=== PATIENT | female | born 1965 | race Two or more races ===

== ENCOUNTER 2016-08-20 10:01 | Emergency (ER) | payer MEDICAID ==
[~2016-08-20] VITALS: Ht 160 cm; Wt 97.5 kg
[2016-08-20 10:50] VITALS: BP 146/81
== END 2016-08-20 11:17 | disposition home or self-care (01) ==
LOC: ER 10:01
DX: I10 Essential (primary) hypertension (principal); Z76.0 Encounter for issue of repeat prescription

== ENCOUNTER 2016-10-17 11:22 | Emergency (ER) | payer MEDICAID ==
[~2016-10-17] VITALS: Ht 160 cm; Wt 97.5 kg
[2016-10-17 11:53] VITALS: BP 144/71
== END 2016-10-17 12:25 | disposition home or self-care (01) ==
LOC: ER 11:22
DX: I10 Essential (primary) hypertension (principal); Z76.0 Encounter for issue of repeat prescription

== ENCOUNTER 2021-06-12 09:40 | Inpatient (IN) | payer MEDICAID ==
[~2021-06-12] VITALS: Ht 157.5 cm; Wt 116.8 kg
[2021-06-12 12:22] LABS: Basophils # (auto) 0 10 ^3/uL (0-0.2); Basophils % (auto) 0.6 % (0.0-2.0); Eosinophils # (auto) 0 10 ^3/uL (0-0.8); Eosinophils % (auto) 0.1 % (0.0-7.0); Hematocrit 40.1 % (36.0-46.0); Hemoglobin 13.5 g/dL (12.2-16.2); Lymphocytes # (auto) 1.7 10 ^3/uL (0.4-5.4); Lymphocytes % (auto) 31.6 % (10.0-50.0); Mean Corpuscular Hemoglobin 29.2 pg (28.0-32.0); Mean Corpuscular Hgb Conc. 33.6 g/dL (32.0-36.0); Mean Corpuscular Volume 87.1 fL (80.0-100.0); Monocytes # (auto) 0.3 10 ^3/uL (0-1.3); Monocytes % (auto) 6.3 % (0.0-12.0); Neutrophils # (auto) 3.3 10 ^3/uL (1.6-8.6); Neutrophils % (auto) 61.4 % (37.0-80.0); Nucleated Red Blood Cells % 0.1 %; Red Cell Distribution Width 14.4 % (11.8-14.3); White Blood Cell 5.4 10^3/uL (4.4-10.8)
[2021-06-12 12:37] LABS: Calcium 8.3 mg/dL (8.5-10.1); Potassium 3.3 mmol/L (3.5-5.1)
[2021-06-12 12:44] LABS: BUN/Creatinine Ratio 13.2; Bilirubin, Total 0.3 mg/dL (0.2-1.0); Total Protein 7.9 g/dL (6.4-8.2)
[2021-06-12] MEDS ORDERED: ASCORBIC ACID 500 MG TAB PO ONE (15:15)
[2021-06-12] MEDS ORDERED: DexAMETHasone SOD PHOS 4 MG/1ML SDV INJ IV ONE (15:15)
[2021-06-12] MEDS ORDERED: cefTRIAXone 1GM/50ML D5W 50 ML IV ONE (15:15)
[2021-06-12] MEDS ORDERED: AZITHROMYCIN 500MG/ 250ML 250 ML IV ONE (15:15)
[2021-06-12] MEDS ORDERED: hydrOXYchloroQUINE SULFATE 200 MG TAB PO ONE (15:15)
[2021-06-12] MEDS ORDERED: ZINC SULFATE 220mg CAP or TAB PO ONE (15:15)
[2021-06-12] MEDS ORDERED: CHOLECALCIFEROL (VITD3) 2,000 UNIT CAP/TAB PO ONE (15:15)
[2021-06-12] MEDS ORDERED: NITROGLYCERIN 0.4 MG SL TAB SL PRN ×2 (15:30→16:30)
[2021-06-12] MEDS ORDERED: POTASSIUM CHL 20MEQ/100ML 100 ML IV ONE (15:30)
[2021-06-12] MEDS ORDERED: MORPHINE SULFATE INJECTION 2 MG/ML SYRG IV PRN ×3 (15:30→16:30)
[2021-06-12] MEDS ORDERED: LORazepam 0.5 MG TAB PO PRN (16:30)
[2021-06-12] MEDS ORDERED: HYDROcodone-ACET 5/325MG TAB PO PRN (16:30)
[2021-06-12] MEDS ORDERED: ALUM & MAG HYDROX-SIMETH LIQ(MAALOX) 30 ML PO PRN (16:30)
[2021-06-12] MEDS ORDERED: DOCUSATE SOD 100 MG CAP PO PRN (16:30)
[2021-06-12] MEDS ORDERED: hydrALAZINE HCL 20 MG/ML VL IV PRN (16:30)
[2021-06-12] MEDS ORDERED: ALBUMIN 25% 100 ML IV ONE (16:30)
[2021-06-12] MEDS ORDERED: ONDANSETRON HCL 4 MG/2 ML VIAL IV PRN (16:30)
[2021-06-12] MEDS ORDERED: REMDESIVIR PER PHARMACY 0 ML IV SCH (16:30)
[2021-06-12] MEDS ORDERED: FAMOTIDINE (10MG/ML) 2ML VL IV ONE (16:30)
[2021-06-12 17:00] LABS: Albumin 3.1 g/dL (3.4-5.0); Calcium 8.3 mg/dL (8.5-10.1); Magnesium 2.7 mg/dL (1.6-2.6); Potassium 3.6 mmol/L (3.5-5.1)
[2021-06-12] MEDS ORDERED: REMDESIVIR 200 MG in NS 210ml LOADING DOSE ADULT IV ONE (17:00)
[2021-06-12 17:11] LABS: Bilirubin, Total 0.3 mg/dL (0.2-1.0); CRP High Sensitivity 4.73 mg/dL (< 0.3); Total Protein 7.4 g/dL (6.4-8.2)
[2021-06-12 17:12] LABS: Cholesterol 94 mg/dL (< 200)
[2021-06-12 17:14] LABS: HDL Cholesterol 34 mg/dL (40-59); LDL Cholesterol 46 mg/dL (< 100); Triglycerides 119 mg/dL (< 150)
[2021-06-12 17:50] LABS: Thyroid Stimulating Hormone 0.79 uIU/mL (0.358-3.74)
[2021-06-12] MEDS: BUDESONIDE (INHALATION) 180 MCG IH IN SCH (21:53)
[2021-06-12] MEDS: ALBUTEROL SULF HFA 90MCG INH 200DOSE IN PRN (21:54)
[2021-06-13] MEDS: POTASSIUM CHL 20 Meq TABLET PO SCH ×3 (01:07→21:29)
[2021-06-13] MEDS: FUROSEMIDE 20 MG/2 ML VIAL IV SCH ×3 (01:09→18:04)
[2021-06-13] MEDS: DOXYCYCLINE 100MG/250ML 250 ML IV SCH ×4 (01:10→21:29)
[2021-06-13] MEDS: ATORVASTATIN 20 MG TAB PO SCH ×2 (01:10→21:30)
[2021-06-13] MEDS: ENOXAPARIN SOD 40 MG/0.4 ML SYRINGE SC SCH ×3 (01:11→21:30)
[2021-06-13] MEDS: FAMOTIDINE (10MG/ML) 2ML VL IV SCH ×3 (01:27→21:29)
[2021-06-13 04:17] VITALS: BP 110/66
[2021-06-13] MEDS ORDERED: LISI2.5T47 PO (04:55)
[2021-06-13 05:18] VITALS: BP 116/68
[2021-06-13] MEDS: BUDESONIDE (INHALATION) 180 MCG IH IN SCH ×2 (06:47→19:15)
[2021-06-13] MEDS: ALBUTEROL SULF HFA 90MCG INH 200DOSE IN PRN ×2 (06:47→22:46)
[2021-06-13 09:00] VITALS: BP 129/75
[2021-06-13] MEDS: DexAMETHasone SOD PHOS 10MG/1ML VIAL INJ IV SCH (10:01)
[2021-06-13] MEDS: ASPirin 81 mg TAB PO SCH (10:02)
[2021-06-13] MEDS: ZINC SULFATE 220mg CAP or TAB PO SCH (10:03)
[2021-06-13] MEDS: ASCORBIC ACID 1,000 MG TAB PO SCH (10:04)
[2021-06-13] MEDS: IVERMECTIN 3 MG TAB PO SCH (10:04)
[2021-06-13] MEDS: CHOLECALCIFEROL (VITD3) 2,000 UNIT CAP/TAB PO SCH (10:04)
[2021-06-13 11:40] LABS: Basophils # (auto) 0 10 ^3/uL (0-0.2); Basophils % (auto) 0.4 % (0.0-2.0); Eosinophils # (auto) 0 10 ^3/uL (0-0.8); Hematocrit 38.6 % (36.0-46.0); Lymphocytes # (auto) 1.1 10 ^3/uL (0.4-5.4); Lymphocytes % (auto) 29.2 % (10.0-50.0); Mean Corpuscular Hgb Conc. 33.8 g/dL (32.0-36.0); Mean Corpuscular Volume 85.8 fL (80.0-100.0); Monocytes # (auto) 0.3 10 ^3/uL (0-1.3); Monocytes % (auto) 7.5 % (0.0-12.0); Neutrophils # (auto) 2.3 10 ^3/uL (1.6-8.6); Neutrophils % (auto) 62.9 % (37.0-80.0); Nucleated Red Blood Cells % 0.1 %; Red Blood Cells 4.49 10^6/uL (4.0-5.20); Red Cell Distribution Width 14.5 % (11.8-14.3); White Blood Cell 3.7 10^3/uL (4.4-10.8)
[2021-06-13 11:56] LABS: Albumin 2.8 g/dL (3.4-5.0); Calcium 8.2 mg/dL (8.5-10.1); Magnesium 2.9 mg/dL (1.6-2.6); Potassium 3.8 mmol/L (3.5-5.1)
[2021-06-13 11:59] LABS: INR 0.92 (0.9-1.15); Partial Thromboplastin Time 27.9 sec (23.6-33.0)
[2021-06-13 12:01] LABS: BUN/Creatinine Ratio 17.2; Bilirubin, Total 0.3 mg/dL (0.2-1.0); Phosphorus 2.9 mg/dL (2.5-4.90); Total Protein 6.9 g/dL (6.4-8.2)
[2021-06-13 13:00] VITALS: BP 119/75
[2021-06-13] MEDS: REMDESIVIR 100mg 100 MG in SODIUM CHL 0.9% 230 ML IV SCH (14:37)
[2021-06-13 16:56] VITALS: BP 121/70
[2021-06-13 22:00] VITALS: BP 115/65
[2021-06-14 05:00] VITALS: BP 123/75
[2021-06-14 06:31] LABS: Potassium 4.3 mmol/L (3.5-5.1)
[2021-06-14 06:43] LABS: Albumin 2.7 g/dL (3.4-5.0); Bilirubin, Total 0.2 mg/dL (0.2-1.0); Calcium 8.7 mg/dL (8.5-10.1); Total Protein 6.7 g/dL (6.4-8.2)
[2021-06-14] MEDS: FUROSEMIDE 20 MG/2 ML VIAL IV SCH ×2 (06:55→18:10)
[2021-06-14 09:00] VITALS: BP 132/60
[2021-06-14] MEDS: BUDESONIDE (INHALATION) 180 MCG IH IN SCH ×2 (09:40→19:33)
[2021-06-14] MEDS: ALBUTEROL SULF HFA 90MCG INH 200DOSE IN PRN ×2 (09:41→20:52)
[2021-06-14] MEDS: FAMOTIDINE (10MG/ML) 2ML VL IV SCH (10:31)
[2021-06-14] MEDS: DexAMETHasone SOD PHOS 10MG/1ML VIAL INJ IV SCH (10:31)
[2021-06-14] MEDS: ZINC SULFATE 220mg CAP or TAB PO SCH (10:32)
[2021-06-14] MEDS: ASPirin 81 mg TAB PO SCH (10:32)
[2021-06-14] MEDS: POTASSIUM CHL 20 Meq TABLET PO SCH ×2 (10:32→22:08)
[2021-06-14] MEDS: DOXYCYCLINE 100MG/250ML 250 ML IV SCH ×2 (10:32→22:08)
[2021-06-14] MEDS: IVERMECTIN 3 MG TAB PO SCH (10:33)
[2021-06-14] MEDS: CHOLECALCIFEROL (VITD3) 2,000 UNIT CAP/TAB PO SCH (10:33)
[2021-06-14] MEDS: ENOXAPARIN SOD 40 MG/0.4 ML SYRINGE SC SCH ×2 (10:33→22:09)
[2021-06-14] MEDS: ASCORBIC ACID 1,000 MG TAB PO SCH (10:33)
[2021-06-14 13:00] VITALS: BP 145/75
[2021-06-14] MEDS: REMDESIVIR 100mg 100 MG in SODIUM CHL 0.9% 230 ML IV SCH (15:37)
[2021-06-14 17:00] VITALS: BP 131/68
[2021-06-14 21:45] VITALS: BP 122/63
[2021-06-14] MEDS: ATORVASTATIN 20 MG TAB PO SCH (22:08)
[2021-06-14] MEDS: FAMOTIDINE 20 MG TAB PO SCH (22:09)
[2021-06-15 05:13] VITALS: BP 123/76
[2021-06-15] MEDS: FUROSEMIDE 20 MG/2 ML VIAL IV SCH ×2 (06:28→18:14)
[2021-06-15 06:51] LABS: Potassium 4.6 mmol/L (3.5-5.1)
[2021-06-15 07:02] LABS: Albumin 2.5 g/dL (3.4-5.0); BUN/Creatinine Ratio 42.2; Bilirubin, Total 0.2 mg/dL (0.2-1.0); Calcium 8.7 mg/dL (8.5-10.1); Total Protein 6.6 g/dL (6.4-8.2)
[2021-06-15 09:00] VITALS: BP_SYST 103; BP_SYST 125; BP_DIAS 62; BP_DIAS 66
[2021-06-15] MEDS: ZINC SULFATE 220mg CAP or TAB PO SCH (09:52)
[2021-06-15] MEDS: DOXYCYCLINE 100MG/250ML 250 ML IV SCH ×2 (09:52→22:00)
[2021-06-15] MEDS: ASPirin 81 mg TAB PO SCH (09:52)
[2021-06-15] MEDS: POTASSIUM CHL 20 Meq TABLET PO SCH ×2 (09:53→22:00)
[2021-06-15] MEDS: FAMOTIDINE 20 MG TAB PO SCH ×2 (09:53→22:00)
[2021-06-15] MEDS: IVERMECTIN 3 MG TAB PO SCH (09:53)
[2021-06-15] MEDS: CHOLECALCIFEROL (VITD3) 2,000 UNIT CAP/TAB PO SCH (09:54)
[2021-06-15] MEDS: ASCORBIC ACID 1,000 MG TAB PO SCH (09:54)
[2021-06-15] MEDS: ENOXAPARIN SOD 40 MG/0.4 ML SYRINGE SC SCH ×2 (09:55→22:00)
[2021-06-15] MEDS: DexAMETHasone SOD PHOS 10MG/1ML VIAL INJ IV SCH (11:04)
[2021-06-15 13:00] VITALS: BP 134/70
[2021-06-15] MEDS: REMDESIVIR 100mg 100 MG in SODIUM CHL 0.9% 230 ML IV SCH (14:30)
[2021-06-15] MEDS: BUDESONIDE (INHALATION) 180 MCG IH IN SCH ×2 (14:53→21:50)
[2021-06-15] MEDS: ALBUTEROL SULF HFA 90MCG INH 200DOSE IN PRN ×2 (14:53→21:50)
[2021-06-15 17:00] VITALS: BP 110/63
[2021-06-15 22:00] VITALS: BP 132/83
[2021-06-15] MEDS: ATORVASTATIN 20 MG TAB PO SCH (22:00)
[2021-06-16 00:39] VITALS: BP 132/83
[2021-06-16 05:00] VITALS: BP 148/86
[2021-06-16 05:54] LABS: Basophils # (auto) 0 10 ^3/uL (0-0.2); Basophils % (auto) 0.3 % (0.0-2.0); Eosinophils # (auto) 0 10 ^3/uL (0-0.8); Monocytes # (auto) 0.7 10 ^3/uL (0-1.3); Neutrophils # (auto) 4.5 10 ^3/uL (1.6-8.6); Nucleated Red Blood Cells % 0.2 %
[2021-06-16 05:57] LABS: Hematocrit 38.4 % (36.0-46.0); Hemoglobin 13.2 g/dL (12.2-16.2); Lymphocytes # (auto) 3.3 10 ^3/uL (0.4-5.4); Lymphocytes % (auto) 38.7 % (10.0-50.0); Mean Corpuscular Hemoglobin 29.5 pg (28.0-32.0); Mean Corpuscular Hgb Conc. 34.4 g/dL (32.0-36.0); Mean Corpuscular Volume 85.8 fL (80.0-100.0); Monocytes % (auto) 8.7 % (0.0-12.0); Neutrophils % (auto) 52.3 % (37.0-80.0); Red Blood Cells 4.47 10^6/uL (4.0-5.20); Red Cell Distribution Width 14.4 % (11.8-14.3); White Blood Cell 8.5 10^3/uL (4.4-10.8)
[2021-06-16 06:17] LABS: Potassium 4.5 mmol/L (3.5-5.1)
[2021-06-16] MEDS: FUROSEMIDE 20 MG/2 ML VIAL IV SCH ×2 (06:21→17:34)
[2021-06-16 06:27] LABS: Albumin 2.7 g/dL (3.4-5.0); Calcium 8.9 mg/dL (8.5-10.1)
[2021-06-16 06:35] LABS: Bilirubin, Total 0.3 mg/dL (0.2-1.0); Total Protein 6.6 g/dL (6.4-8.2)
[2021-06-16] MEDS: BUDESONIDE (INHALATION) 180 MCG IH IN SCH (06:44)
[2021-06-16] MEDS: ALBUTEROL SULF HFA 90MCG INH 200DOSE IN PRN (06:45)
[2021-06-16 09:00] VITALS: BP 121/65
[2021-06-16] MEDS: ASPirin 81 mg TAB PO SCH (09:09)
[2021-06-16] MEDS: DOXYCYCLINE 100MG/250ML 250 ML IV SCH (09:09)
[2021-06-16] MEDS: ZINC SULFATE 220mg CAP or TAB PO SCH (09:09)
[2021-06-16] MEDS: FAMOTIDINE 20 MG TAB PO SCH (09:10)
[2021-06-16] MEDS: DexAMETHasone SOD PHOS 10MG/1ML VIAL INJ IV SCH (09:10)
[2021-06-16] MEDS: ENOXAPARIN SOD 40 MG/0.4 ML SYRINGE SC SCH (09:10)
[2021-06-16] MEDS: IVERMECTIN 3 MG TAB PO SCH (09:10)
[2021-06-16] MEDS: CHOLECALCIFEROL (VITD3) 2,000 UNIT CAP/TAB PO SCH (09:10)
[2021-06-16] MEDS: POTASSIUM CHL 20 Meq TABLET PO SCH (09:10)
[2021-06-16] MEDS: ASCORBIC ACID 1,000 MG TAB PO SCH (09:11)
[2021-06-16 13:00] VITALS: BP 147/74
[2021-06-16] MEDS: REMDESIVIR 100mg 100 MG in SODIUM CHL 0.9% 230 ML IV SCH (15:30)
[2021-06-16 17:00] VITALS: BP 131/67
== END 2021-06-16 18:00 | disposition home or self-care (01) | DRG 137 ==
LOC: ER 09:40 → TELE 15:16 → TELE-EAST 06-13 02:45
PROVIDERS: ADMIT Hospitalist; ATTEND Internal Medicine
PROC: XW033E5 Introduction of Remdesivir Anti-infective into Peripheral Vein, Percutaneous Approach, New Technology Group 5 (ICD-10-PCS; principal; 2021-06-12)
DX: U07.1 COVID-19 (principal); J96.01 Acute respiratory failure with hypoxia; J12.82 Pneumonia due to coronavirus disease 2019; E44.0 Moderate protein-calorie malnutrition; D89.839 Cytokine release syndrome, grade unspecified; E88.09 Other disorders of plasma-protein metabolism, not elsewhere classified; I10 Essential (primary) hypertension; E87.6 Hypokalemia; E66.01 Morbid (severe) obesity due to excess calories; E78.5 Hyperlipidemia, unspecified; J45.909 Unspecified asthma, uncomplicated; R73.03 Prediabetes; Z68.36 Body mass index [BMI] 36.0-36.9, adult
CPT/HCPCS: 36415; 36600; 71045; 71046; 80053; 80061; 82306; 82728; 82805; 83036; 83605; 83615; 83735; 83880; 84100; 84443; 84484; 85025; 85379; 85610; 85730; 86141; 87426; 93005; 94640; 96365; 96367; 96375; G0378; J0696; J1100; J3480; J3490

== ENCOUNTER 2025-05-19 16:38 | Emergency (ER) | payer MEDICAID ==
[~2025-05-19] VITALS: Ht 157.5 cm; Wt 122.0 kg
[~2025-05-19 16:38] MED LIST: LISI2.5T47 PO
[2025-05-19 17:24] VITALS: BP 103/85; PULSE 88; RESP 16; TEMP 97.7; O2SAT 96
--- NOTE | 2025-05-19 17:29 | ED.PDOC ---
History of Present Illness HPI Comments A 59 YEAR OLD FEMALE PRESENTS TO THE ED WITH COMPLAINT OF A PRODUCTIVE COUGH ASSOCIATED WITH BODY ACHES AND A SORE THROAT THAT STARTED 10 DAYS AGO. PATIENT REPORTS NO OTC MEDICATION RELIEF.PATIENT DENIES FEVER, CHILLS, SHORTNESS OF BREATH, CHEST PAIN, ABDOMINAL PAIN, NAUSEA, VOMITING, HEADACHE, OR OTHER COMPLA INTS. NO OTHER SYMPTOMS OR MODIFYING FACTORS AT THIS TIME. PATIENT IS ALERT, ORIENTED X 4, AND HAS STEADY GAIT. Chief Complaint: Flu like Time Seen by MD: 17:19 Primary Care Provider: NONE Reviewed Notes: Nurses Notes, Medications, Allergies Allergies: Coded Allergies: NO KNOWN ALLERGIES (Unverified , 12/17/13) Home Meds Reported Medications Lisinopril (Lisinopril) 2.5 Mg Tab, 2.5 MG PO DAILY@DINNER for 30 Days, MG 06/13/21 Information Source: Patient Mode of Arrival: Wheelchair Severity: Moderate Timing: Days (10) Duration: Since onset, Days Medication Refill: For: Other (COUGH AND THROAT PAIN ) Associated signs and symptoms COUGH, SORE THROAT AND BODY ACHES Past Medical History PAST MEDICAL HISTORY: HTN Past Medical History (Other): ANUERYSM X2 Surgical History: Denies all surgeries SENIOR ACCOUNTANT ANALYST History: No Pertinent SENIOR ACCOUNTANT ANALYST History Family History Family History: No family hx of DM, Unknown Social History Smoker: Non-Smoker Alcohol: Denies ETOH Use Drugs: Denies Drug Use Lives In: Home Constitutional: denies: chills, diaphoresis, fatigue, fever, malaise, sweats, weakness, others EENTM: reports: nose congestion, throat pain, throat swelling; denies: blurred vision, double vision, ear bleeding, ear discharge, ear drainage, ear pain, ear ringing, eye pain, eye redness, hearing loss, mouth pain, mouth swelling, nasal discharge, nose bleeding, nose pain, photophobia, tearing, voice changes, others Respiratory: reports: cough; denies: hemoptysis, orthopnea, SOB at rest, shortness of breath, SOB with excertion, stridor, wheezing, others Cardiovascular: denies: chest pain, dizzy spells, diaphoresis, Dyspnea on exertion, edema, irregular heart beat, left arm pain, lightheadedness, palpitations, PND, syncope, others Gastrointestinal: denies: abdomen distended, abdominal pain, blood streaked bowels, constipated, diarrhea, dysphagia, difficulty swallowing, hematemesis, melena, nausea, poor appetite, poor fluid intake, rectal bleeding, rectal pain, vomiting, others Genitourinary: denies: abnormal vagina bleeding, burning, dyspareunia, dysuria, flank pain, frequency, hematuria, incontinence, pain, , vagina discharge, urgency, others Neurological: denies: dizziness, fainting, headache, left sided numbness, left sided weakness, numbness, paresthesia, pre-existing deficit, right sided n umbness, right sided weakness, seizure, speech problems, tingling, tremors, weakness, others Musculoskeletal: reports: muscle pain; denies: back pain, gout, joint pain, joint swelling, muscle stiffness, neck pain, others Integumetry: denies: bruises, change in color, change in hair/nails, dryness, laceration, lesions, lumps, rash, wounds, others Allergic/Immunocompromised: denies: Difficulty Healing, Frequent Infections, Hives, Itching, others Hematologic/Lymphatic: denies: anemia, blood clots, easy bleeding, easy bruising, swollen glands, others Endocrine: denies: excessive hunger, excessive sweating, excessive thirst, excessive urination, flushing, intolerance to cold, intolerance to heat, unexplained weight gain, unexplained weight loss, others Psychiatric: denies: anxiety, bipolar disorder, depression, hopeless, panic disorder, schizophrenia, sleepless, suicidal, others All Other Systems: Reviewed and Negative Physical Exam General Appearance: No Apparent Distress, Obese HEENT: PERRL/EOMI, Pharyngeal Erythema (VESICLE PHARYNX, NO EXUDATES. ), TMs Normal Neck: Full Range of Motion, Non-Tender, Normal, Normal Inspection Respiratory: Chest Non-Tender, Expiration, No Accessory Muscle Use, No Respiratory Distress, Rhonchi Cardiovascular: No Edema, No JVD, No Murmur, No Gallop, Normal Peripheral Pulses, Regular Rate/Rhythm Breast Exam: Deferred Gastrointestinal: No Organomegaly, Non Tender, No Pulsatile Mass, Normal Bowel Sounds, Soft Genitalia: Deferred Pelvic: Deferred Rectal: Deferred Extremities: No calf tenderness, Normal capillary refill, Normal inspection, Normal range of motion, Non-tender, No pedal edema Musculoskeletal : Apperance: Normal Neurologic: Alert, flattening press operator II-XII nml as Tested, No Motor Deficits, Normal Affect, Normal Mood, No Sensory Deficits Cerebellar Function: Normal Reflexes: Normal Skin: Dry, Normal Color, Warm Peripheral Pulses: 2+ carotid (R), 2+ carotid (L) Lymphatic: No Adenopathy Was a procedure done? Was a procedure done?: No Differential Dx Considerations may include: URI, INFLUENZA, PHARYNGITIS, BRONCHITIS AND PNEUMONIA X-Ray, Labs, Meds, VS Vital Signs Date Time Temp Pulse Resp B/P (MAP) Pulse Ox O2 Delivery O2 Flow Rate FiO2 05/19/25 17:24 88 16 96 Room Air 05/19/25 17:24 97.7 88 16 103/85 (91) 96 97.7 05/19/25 16:40 97.7 88 16 103/85 96 97.7 [place] [address] Ph: [phone] DIAGNOSTIC IMAGING Diagnostic Imaging Report : [id number] Signed PATIENT: ANDRADE MARTIN ACCT: [id number] UNIT: [id number] : 1965 LOC: ER ROOM / BED: / AGE / SEX: 59 / F ADM STATUS: REG ER SERVICE [id number] ORDERING PHYSICIAN: CARLOS HEATH PROCEDURE(s): CXR1 - CHEST XRAY 1 VIEW REASON: COUGH AND FLU ORDER NUMBER(s): [id number], ACCESSION NUMBER(s): [id number] EXAM: XY CHEST XRAY 1 VIEW CLINICAL HISTORY: COUGH AND FLU TECHNIQUE: Single AP view of the chest WID: COMPARISON: CHEST PORTABLE on DOS: 06/16/21, FINDINGS: Lines and tubes: None Chest: Mild cardiomegaly. Mild prominence of the central pulmonary vasculature. Interstitial prominence of the lungs. No pneumothorax or significant pleural effusion. The osseous structures are grossly intact. IMPRESSION: 1. Mild cardiomegaly with mild prominence of the central pulmonary vasculature. 2. Interstitial prominence in the lungs. DDX includes atypical infection, interstitial edema, or scarring/fibrosis. ATED BY: ANNETTE CHOWDHURY MD DICTATED DATE/TIME: 05/19/25 0237 SIGNED BY: ANNETTE CHOWDHURY MD SIGNED DATE/TIME: 05/19/251754 CC: X-Ray, Labs, Meds, VS Comment EXTERNAL MEDICAL RECORDS REVIEWED: [NONE] INDEPENDENT HISTORIANS: [NONE] SOCIAL DETERMINANTS OF HEALTH: [NONE] LABS ORDERED: NONE REVIEWED AND INTERPRETED RESULTS: NONE IMAGING ORDERED: CXR TREATMENTS ORDERED: ROCEPHIN 1 G PROCEDURES PERFORMED: NONE CRITICAL CARE TIME: NONE I HAVE DISCUSSED THE PATIENT WITH THE ATTENDING PHYSICIAN, DR. CHRISTINE, SHE AGREES WITH THE PATIENT'S PLAN OF CARE AND DISPOSITION. BASED ON HISTORY OF PRESENT ILLNESS, AND PHYSICAL EXAM, PATIENT WILL BE DISCHARGED HOME. DISCUSSED PLAN FOR DISCHARGE HOME WITH RX LEVAQUIN AND PHENERGAN DM AND PREDNISONE. MEDICATION WARNINGS GIVEN. SHARED DECISION MAKING: DISCUSSED WITH PATIENT THAT THEIR WORKUP WAS NORMAL. PATIENT INSTRUCTED TO FOLLOW UP WITH PRIMARY CARE PROVIDER IN 1-2 DAYS FOR RE- EVALUATION OF SYMPTOMS. PATIENT VERBALIZES UNDERSTANDING TO RETURN TO ED FOR NEW OR WORSENING SYMPTOMS OR IF FOLLOW UP WITH PCP CANNOT BE OBTAINED. PATIENT FEELS COMFORTABLE GOING HOME AT THIS TIME. ALL QUESTIONS ADDRESSED AT TIME OF DISCHARGE. Time of 1ST Reevaluation: 18:14 Reevaluation 1ST: Improved Patient Education/Counseling: Diagnosis, Treatment, Prognosis Family Education/Counseling: Diagnosis, Treatment, No Family Present Medical Screening: No EMC Exist At This Time SEPSIS Sepsis Screen Date sepsis recognized/suspect: May 19, 2025 Time Sepsis recognized/suspect: 1643 Recent Procedure: No On Antibiotic Therapy: No Respiratory Rate >20: No Heart Rate >90: No Temp<36 C (96.8 F) or >38.3 C: No SBP <90 or MAP <65 mmHG: No New Acute Mental Status Change: No Is the patient on CPAP, BIPAP,: No Physician Orders Chest Xray 1 View (05/19/25 16:56) Vital Signs Date Time Temp Pulse Resp B/P (MAP) Pulse Ox O2 Delivery O2 Flow Rate FiO2 05/19/25 17:24 88 16 96 Room Air 05/19/25 17:24 97.7 88 16 103/85 (91) 96 97.7 05/19/25 16:40 97.7 88 16 103/85 96 97.7 Departure 1 Departure Time of Disposition: 18:30 Impression: Primary Impression: Acute bronchitis Qualified Codes: J20.9 - Acute bronchitis, unspecified Additional Impression: Acute pharyngitis Qualified Codes: J02.9 - Acute pharyngitis, unspecified Disposition: HOME / SELF CARE / HOMELESS Condition: Stable Additional Instructions: F/U PCP IN 2 DAYS RECHECK. IF CONDITION BECOME WORSE, RETURN TO ED [facility] J. e-Prescriptions Prednisone (Prednisone) 20 Mg Tab 60 MG PO DAILY, #18 TAB Prov: CARLOS HEATH 05/19/25 Promethazine-Dm (Promethazine Dm 6.25-15 mg/5Ml) 1 Ally Ally 5 ML PO TID, #180 ML Prov: CARLOS HEATH 05/19/25 Levofloxacin Hemihydrate (LEVAQUIN 500 MG) 500 Mg Tab 1 TAB PO DAILY, #10 TAB Prov: CARLOS HEATH 05/19/25 Discharged With: Self Critical Care Note Critical Care Time?: No Stability Stability form required: No I personally scribed for CARLOS HEATH ([email or web address]) on 05/19/25 at 17:29. Electronically submitted by Keke Boss ([facility]). I personally scribed for CARLOS HEATH ([email or web address]) on 05/19/25 at 17:50. E lectronically submitted by Keke Boss ([facility]). I personally scribed for CARLOS HEATH ([email or web address]) on 05/19/25 at 18:02. Elec tronically submitted by Keke Boss ([facility]). CARLOS HEATH May 19, 2025 17:29
--- NOTE | 2025-05-19 17:57 | DVH ---
EXAM: XY CHEST XRAY 1 VIEW CLINICAL HISTORY: COUGH AND FLU TECHNIQUE: Single AP view of the chest WID: COMPARISON: CHEST PORTABLE on DOS: 06/16/21, FINDINGS: Lines and tubes: None Chest: Mild cardiomegaly. Mild prominence of the central pulmonary vasculature. Interstitial prominence of the lungs. No pneumothorax or significant pleural effusion. The osseous structures are grossly intact. IMPRESSION: 1. Mild cardiomegaly with mild prominence of the central pulmonary vasculature. 2. Interstitial prominence in the lungs. DDX includes atypical infection, interstitial edema, or sca rring/fibrosis.
[2025-05-19] MEDS: cefTRIAXone SOD 1,000 MG VL IM ONE (18:04)
[2025-05-19] MEDS ORDERED: LEVO500T91 PO (18:14)
[2025-05-19] MEDS ORDERED: PRED20TA2 PO (18:14)
[2025-05-19] MEDS ORDERED: PROM1SOL4 PO (18:14)
== END 2025-05-19 18:21 | disposition home or self-care (01) ==
LOC: ER 16:38
DX: J02.9 Acute pharyngitis, unspecified (principal); J20.9 Acute bronchitis, unspecified; I10 Essential (primary) hypertension; Z79.899 Other long term (current) drug therapy
CPT/HCPCS: 71045; 96372; 99283; J0696

== ENCOUNTER 2025-07-04 11:45 | Inpatient (IN) | payer MEDICAID ==
[~2025-07-04] VITALS: Ht 160 cm; Wt 128.7 kg
[~2025-07-04 11:45] MED LIST changes: +LEVO500T91 PO; +PRED20TA2 PO; +PROM1SOL4 PO
--- NOTE | 2025-07-04 12:41 | ED.PDOC ---
Musculoskeletal HPI Comments 59y F who presents to the ED for chief complaint of extremity pain. Pt states she has been having bilateral lower extremity swelling and upper extremity bilateral hand pain for the past 3x days. Pt states she states she has not been taking her hypertension medications for the past 3x days due to side effect of weight gain from medication. Pt also states she has been having hematuria and foul odor for the past few days. Pt has noted BP of 179/94 in the ED with otherwise stable vitals. Chief Complaint: Lower Extremity Time Seen by MD: 13:03 Primary Care Provider: NONE Reviewed Notes: Medications, Allergies Allergies: Coded Allergies: NO KNOWN ALLERGIES (Unverified , 12/17/13) Home Meds Active Scripts Cephalexin Monohydrate (Cephalexin) 500 Mg Cap, 1 CAP PO TID for 3 Days, #9 CAP Prov:ZACK FERNANDEZ MD 07/06/25 Lisinopril (Lisinopril) 5 Mg Tab, 5 MG PO DAILY, #30 TAB Prov:ZACK FERNANDEZ MD 07/06/25 Furosemide (Furosemide) 20 Mg Tab, 20 MG PO DAILY for 30 Days, #30 TAB Prov:ZACK FERNANDEZ MD 07/06/25 Discontinued Reported Medications Lisinopril (Lisinopril) 2.5 Mg Tab, 2.5 MG PO DAILY@DINNER for 30 Days, MG 06/13/21 Discontinued Scripts Prednisone (Prednisone) 20 Mg Tab, 60 MG PO DAILY, #18 TAB Prov:CARLOS HEATH 05/19/25 Promethazine-Dm (Promethazine Dm 6.25-15 mg/5Ml) 1 Ally Ally, 5 ML PO TID, #180 ML Prov:CARLOS HEATH 05/19/25 Levofloxacin Hemihydrate (LEVAQUIN 500 MG) 500 Mg Tab, 1 TAB PO DAILY, #10 TAB Prov:CARLOS HEATH 05/19/25 Information Source: Patient Mode of Arrival: Wheelchair Brought in by: family member Past Medical History PAST MEDICAL HISTORY: HTN Surgical History: Denies all surgeries PIN INSERTER REGULATOR History: No Pertinent PIN INSERTER REGULATOR History Family History Family History: No family hx of DM, Unknown Social History Smoker: Non-Smoker Alcohol: Denies ETOH Use Drugs: Denies Drug Use Lives In: Home Physical Exam General Appearance: No Apparent Distress, Normal HEENT: Normal ENT Inspection, Pharynx Normal, TMs Normal Neck: Full Range of Motion, Non-Tender, Normal, Normal Inspection Respiratory: Chest Non-Tender, Lungs Clear, No Accessory Muscle Use, No Respiratory Distress, Normal Breath Sounds Cardiovascular: No Edema, No JVD, No Murmur, No Gallop, Normal Peripheral Pulses, Regular Rate/Rhythm Breast Exam: Deferred Gastrointestinal: No Organomegaly, Non Tender, No Pulsatile Mass, Normal Bowel Sounds, Soft Genitalia: Deferred Pelvic: Deferred Rectal: Deferred Extremities: Swelling (2+ bilateral lower extremity swelling, no crepitus, capillary refill less than 3, ) Musculoskeletal : Apperance: Normal Neurologic: Alert, label rewinder II-XII nml as Tested, No Motor Deficits, Normal Affect, Normal Mood, No Sensory Deficits Cerebellar Function: Normal Reflexes: Normal Skin: Dry, Normal Color, Warm Lymphatic: No Adenopathy Was a procedure done? Was a procedure done?: No Differential Diagnosis EXT Differential Diagnosis: Cellulitis, CHF, Deep Vein Thrombosis, Sprain, Dislocation, Other Other Differential Diagnosis CHF, X-Ray, Labs, Meds, VS Vital Signs Date Time Temp Pulse Resp B/P (MAP) Pulse Ox O2 Delivery O2 Flow Rate FiO2 07/04/25 19:07 163/72 07/04/25 16:23 92 07/04/25 11:50 98.1 96 16 179/94 97 98.1 Lab Test 07/04/25 14:40 07/04/25 13:31 Range/Units Urine Color [place] H Yellow Urine Clarity Turbid H Clear Urine pH 6.5 5.0-9.0 Urine Specific [place] 1.030 1.001-1.035 Urine Protein 1+ H Negative Urine Ketones Trace Negative Urine Blood Negative Negative /uL Urine Nitrite Negative Negative Urine Bilirubin 1+ H Negative Urine Urobilinogen Over Negative mg/dL Urine Leukocyte Esterase 1+ Negative /uL Urine RBC 3 0 - 4 /hpf Urine Microscopic WBC 13 H 0-5 /HPF Urine Squamous Epithelial Cells Many <5 /hpf Urine Bacteria None seen None Seen /hpf Urine Mucus Few None Seen Urine Yeast (Budding) Occasional None Seen /hpf Urine Glucose Normal Normal mg/dL White Blood Count 7.0 4.4-10.8 10^3/uL Red Blood Count 4.27 4.0-5.20 10^6/uL Hemoglobin 12.8 12.2-16.2 g/dL Hematocrit 38.0 36.0-46.0 % Mean Corpuscular Volume 89.1 80.0-100.0 fL Mean Corpuscular Hemoglobin 30.0 28.0-32.0 pg Mean Corpuscular Hemoglobin Concent 33.7 32.0-36.0 g/dL Red Cell Distribution Width 14.9 H 11.8-14.3 % Platelet Count 312 140-450 10^3/uL Mean Platelet Volume 7.8 6.9-10.8 fL Neutrophils (%) (Auto) 77.7 37.0-80.0 % Lymphocytes (%) (Auto) 19.0 10.0-50.0 % Monocytes (%) (Auto) 3.0 0.0-12.0 % Eosinophils (%) (Auto) 0.1 0.0-7.0 % Basophils (%) (Auto) 0.2 0.0-2.0 % Neutrophils # (Auto) 5.4 1.6-8.6 10 ^3/uL Lymphocytes # (Auto) 1.3 0.4-5.4 10 ^3/uL Monocytes # (Auto) 0.2 0-1.3 10 ^3/uL Eosinophils # (Auto) 0 0-0.8 10 ^3/uL Basophils # (Auto) 0 0-0.2 10 ^3/uL Nucleated Red Blood Cells 0.1 % Sodium Level 140 136-145 mmol/L Potassium Level 3.2 L 3.5-5.1 mmol/L Chloride Level 102 98-107 mmol/L Carbon Dioxide Level 27 20-31 mmol/L Anion Gap 11 5-15 Blood Urea Nitrogen 10 9-23 mg/dL Creatinine 0.38 L 0.550-1.02 mg/dL Glomerular Filtration Rate Calc 114 >90 mL/min BUN/Creatinine Ratio 26.3 H 10.0-20.0 Serum Glucose 100 74-106 mg/dL Calcium Level 8.2 L 8.7-10.4 mg/dL Total Bilirubin 0.6 0.2-1.0 mg/dL Aspartate Amino Transferase (AST) 82 H 13-40 U/L Alanine Aminotransferase (ALT) 23 7-40 U/L Alkaline Phosphatase 147 H 46-116 U/L B-Type Natriuretic Peptide 120.24 0-100 pg/mL Total Protein 6.5 5.7-8.2 g/dL Albumin 2.6 L 3.2-4.8 g/dL Microbiology Date/Time Source Procedure Growth Status 07/04/25 14:40 Voided Urine Urine Culture - Final Complete [facility] [id number] [facility] [address] Ph: [phone] DIAGNOSTIC IMAGING Diagnostic Imaging Report : [id number] Signed PATIENT: ANDRADE MARTIN ACCT: [id number] UNIT: [id number] : 1965 LOC: ER ROOM / BED: / AGE / SEX: 59 / F ADM STATUS: REG ER SERVICE 1214 ORDERING PHYSICIAN: ADRIEN GRIDER NP PROCEDURE(s): CXR2 - CHEST TWO VIEWS ROUTINE REASON: R/o pna ORDER NUMBER(s): [id number], ACCESSION NUMBER(s): [id number] XY CHEST TWO VIEWS ROUTINE CLINICAL HISTORY: R/o pna COMPARISON: XY CHEST XRAY 1 VIEW on DOS: 05/19/25, CHEST PORTABLE on DOS: 06/16/21, CHEST TWO VIEWS ROUTINE on DOS: 06/12/21 TECHNIQUE: Frontal and lateral view of the chest was obtained FINDINGS: Lines and Tubes: None Lungs: No focal consolidation. Pleura: No effusion. No pneumothorax. Cardiomediastinal contours: Unremarkable Bones: No acute osseous abnormality. IMPRESSION: No acute cardiopulmonary disease. ATED BY: HANS MASSEY MD DICTATED DATE/TIME: 07/04/25 131 SIGNED BY: HANS MASSEY MD SIGNED DATE/TIME: 07/04/251309 CC: X-Ray, Labs, Meds, VS Comment Patient arrives alert and oriented, ABC's intact, afebrile, vital signs stable, saturating well in room air Peripheral IV insertion+ labs were ordered. CBC was ordered to exclude anemia, blood loss, or infection. CMP was ordered to exclude electrolyte abnormalities, renal failure, dehydration, hyperglycemia and/or liver enzyme abnormalities. Urinalysis was ordered to rule out UTI or hematuria. BNP, Diagnostic imaging ordered by me and results interpreted by radiology : chest x-ray No acute findings Patient presents with peripheral edema of unclear etiology. Labs were obtained to r/o significant congestive heart failure, renal failure. There was no clinical evidence of Dvt as the edema was bilateral. It did not appear to be cellulitis given the lack of erythema and warmth. Swelling is severe and so patient will be admitted for peripheral edema The patient's workup reveals that the patient needs further evaluation and/or treatment for the above medical conditions. Patient verbalized understanding of the above and is awaiting further evaluation by the admitting service. The patient presents with signs and symptoms that are consistent with a urinary tract infection. The urinalysis confirms the diagnosis. There does not appear to be any signs or symptoms of pyelonephritis or sepsis. Time of 1ST Reevaluation: 13:35 Reevaluation 1ST: Unchanged Time of 2ND Reevaluation: 16:16 Reevaluation 2ND: Unchanged Patient Education/Counseling: Diagnosis, Treatment Family Education/Counseling: Diagnosis, Treatment Departure 1 Departure Time of Disposition: 16:16 Impression: Primary Impression: Peripheral edema Additional Impressions: HTN (hypertension) Qualified Codes: I10 - Essential (primary) hypertension UTI (urinary tract infection) Qualified Codes: N30.00 - Acute cystitis without hematuria Disposition: ADMITTED INPATIENT Condition: Fair e-Prescriptions Cephalexin Monohydrate (Cephalexin) 500 Mg Cap 1 CAP PO TID for 3 Days, #9 CAP Prov: ZACK FERNANDEZ MD 07/06/25 Lisinopril (Lisinopril) 5 Mg Tab 5 MG PO DAILY, #30 TAB Prov: ZACK FERNANDEZ MD 07/06/25 Furosemide (Furosemide) 20 Mg Tab 20 MG PO DAILY for 30 Days, #30 TAB Prov: ZACK FERNANDEZ MD 07/06/25 Critical Care Note Critical Care Time?: No Stability Stability form required: No Heart Score Heart Score: Heart Score Response (Comments) Value History N/A 0 EKG N/A 0 Age N/A 0 Risk Factors N/A 0 Troponin N/A 0 Total 0 I personally scribed for ADRIEN GRIDER NP ([email or web address]) on 07/04/25 at 12:41. Electronically submitted by Connor Gifford ([email or web address]). I personally scribed for ADRIEN GRIDER NP ([email or web address]) on 07/04/25 at 13:10. Electronically submitted by Connor Gifford ([email or web address]). I personally scribed for ADRIEN GRIDER NP ([email or web address]) on 07/04/25 at 14:57. Electronically submitted by Connor Gifford ([email or web address]). ADRIEN GRIDER NP Jul 04, 2025 12:41
--- NOTE | 2025-07-04 13:12 | DVH ---
XY CHEST TWO VIEWS ROUTINE CLINICAL HISTORY: R/o pna COMPARISON: XY CHEST XRAY 1 VIEW on DOS: 05/19/25, CHEST PORTABLE on DOS: 06/16/21, CHEST TWO VIEWS ROUTINE on DOS: 06/12/21 TECHNIQUE: Frontal and lateral view of the chest was obtained FINDINGS: Lines and Tubes: None Lungs: No focal consolidation. Pleura: No effusion. No pneumothorax. Cardiomediastinal contours: Unremarkable Bones: No acute osseous abnormality. IMPRESSION: No acute cardiopulmonary disease.
[2025-07-04 13:48] LABS: Hematocrit 38.0 % (36.0-46.0); Hemoglobin 12.8 g/dL (12.2-16.2); Mean Corpuscular Hemoglobin 30.0 pg (28.0-32.0); Mean Corpuscular Volume 89.1 fL (80.0-100.0); Nucleated Red Blood Cells % 0.1 %
[2025-07-04 14:09] LABS: Alanine Aminotransferase 23 U/L (7-40); Carbon Dioxide 27 mmol/L (20-31); Chloride 102 mmol/L (98-107)
[2025-07-04 14:10] LABS: Albumin 2.6 g/dL (3.2-4.8); Alkaline Phosphatase 147 U/L (46-116); Anion Gap 11 (5-15); BUN/Creatinine Ratio 26.3 (10.0-20.0); Bilirubin, Total 0.6 mg/dL (0.2-1.0); Blood Urea Nitrogen 10 mg/dL (9-23); Calcium 8.2 mg/dL (8.7-10.4); Glucose 100 mg/dL (74-106); Potassium 3.2 mmol/L (3.5-5.1); Sodium 140 mmol/L (136-145); Total Protein 6.5 g/dL (5.7-8.2)
[2025-07-04 15:32] LABS: Urine Budding Yeast OCCASIONAL /hpf (None Seen); Urine Protein, UAD 1+ (Negative)
[2025-07-04] MEDS: HYDROcodone-ACET 5/325MG TAB PO ONE (18:11)
[2025-07-04] MEDS: FUROSEMIDE 40 MG/4 ML VIAL IV ONE (19:07)
[2025-07-04] MEDS ORDERED: ONDANSETRON HCL 4 MG/2 ML VIAL IV PRN (19:15)
--- NOTE | 2025-07-04 22:49 | DVHHP2 ---
History of Present Illness Reason for Visit: Lower extremity swelling History of Present Illness 59-year-old female presents for evaluation of lower extremity swelling. Patient endorses a three day history of noticing bilateral lower extremities become swollen. On arrival patient's blood pressure was noted to be in the 180s. She reports not taking her blood pressure medication for the past three weeks. Denies shortness or breath or chest pain. No fever or chills. No other acute complaints. Past Medical History Hypertension Past Surgical History Denies Family History Noncontributory Smoke: No ALCOHOL: none Drugs: None Lives: with Family Review of Systems Review of Systems Review of systems are currently negative otherwise addressed in HPI. Allergies: Coded Allergies: NO KNOWN ALLERGIES (Unverified , 12/17/13) Medications Current Medications Medications Dose Ordered Sig/Og Route Start Time Stop Time Status Last Admin Dose Admin Clonidine HCl 0.1 mg Q6HP PRN PO 07/04/25 19:15 Lisinopril 5 mg DAILY PO 07/05/25 10:00 Ceftriaxone Sodium 50 ml @ 100 mls/hr DAILY@09 IV 07/05/25 09:00 Acetaminophen/ Hydrocodone Bitart 1 tab Q4HP PRN PO 07/04/25 19:15 Ondansetron HCl 4 mg Q4HP PRN IV 07/04/25 19:15 Enoxaparin Sodium 40 mg DAILY SC 07/05/25 10:00 Acetaminophen 650 mg Q6HP PRN PO 07/04/25 19:15 Exam Vital Signs Vital Signs Date Time Temp Pulse Resp B/P (MAP) Pulse Ox O2 Delivery O2 Flow Rate FiO2 07/04/25 20:14 165/84 (111) 07/04/25 16:23 92 07/04/25 11:50 98.1 16 97 98.1 Exam Gen: 59-year-old female in mild distress Skin: Warm, dry, normal color and texture, no rash. HEENT: Normocephalic atraumatic, mucous membranes moist and pink. Neck: Cervical and supraclavicular nodes normal without enlargement, trachea is midline, thyroid gland is normal without masses. Pulmonary: Clear to auscultation and percussion bilaterally. Cardiac: Regular rate and rhythm. No murmur Abdomen: Soft, nontender, nondistended, bowel sounds present all 4 quadrants, no guarding, no rigidity, no organomegaly. Extremities: No cyanosis, clubbing, plus one bilateral pedal edema Neuro: Cranial nerves II through XII grossly intact, normal affect and speech, no focal motor deficits. Labs/Xrays ORDERING PHYSICIAN: ADRIEN GRIDER NP PROCEDURE(s): CXR2 - CHEST TWO VIEWS ROUTINE REASON: R/o pna ORDER NUMBER(s): [id number], ACCESSION NUMBER(s): [id number] CHEST TWO VIEWS ROUTINE CLINICAL HISTORY: R/o pna COMPARISON: XY CHEST XRAY 1 VIEW on DOS: 05/19/25, CHEST PORTABLE on DOS: 06/16/21, CHEST TWO VIEWS ROUTINE on DOS: 06/12/21 TECHNIQUE: Frontal and lateral view of the chest was obtained FINDINGS: Lines and Tubes: None Lungs: No focal consolidation. Pleura: No effusion. No pneumothorax. Cardiomediastinal contours: Unremarkable Bones: No acute osseous abnormality. IMPRESSION: No acute cardiopulmonary disease. Labs Test 07/04/25 14:40 07/04/25 13:31 Range/Units Urine Color [place] H Yellow Urine Clarity Turbid H Clear Urine pH 6.5 5.0-9.0 Urine Specific [place] 1.030 1.001-1.035 Urine Protein 1+ H Negative Urine Ketones Trace Negative Urine Blood Negative Negative /uL Urine Nitrite Negative Negative Urine Bilirubin 1+ H Negative Urine Urobilinogen Over Negative mg/dL Urine Leukocyte Esterase 1+ Negative /uL Urine RBC 3 0 - 4 /hpf Urine Microscopic WBC 13 H 0-5 /HPF Urine Squamous Epithelial Cells Many <5 /hpf Urine Bacteria None seen None Seen /hpf Urine Mucus Few None Seen Urine Yeast (Budding) Occasional None Seen /hpf Urine Glucose Normal Normal mg/dL White Blood Count 7.0 4.4-10.8 10^3/uL Red Blood Count 4.27 4.0-5.20 10^6/uL Hemoglobin 12.8 12.2-16.2 g/dL Hematocrit 38.0 36.0-46.0 % Mean Corpuscular Volume 89.1 80.0-100.0 fL Mean Corpuscular Hemoglobin 30.0 28.0-32.0 pg Mean Corpuscular Hemoglobin Concent 33.7 32.0-36.0 g/dL Red Cell Distribution Width 14.9 H 11.8-14.3 % Platelet Count 312 140-450 10^3/uL Mean Platelet Volume 7.8 6.9-10.8 fL Neutrophils (%) (Auto) 77.7 37.0-80.0 % Lymphocytes (%) (Auto) 19.0 10.0-50.0 % Monocytes (%) (Auto) 3.0 0.0-12.0 % Eosinophils (%) (Auto) 0.1 0.0-7.0 % Basophils (%) (Auto) 0.2 0.0-2.0 % Neutrophils # (Auto) 5.4 1.6-8.6 10 ^3/uL Lymphocytes # (Auto) 1.3 0.4-5.4 10 ^3/uL Monocytes # (Auto) 0.2 0-1.3 10 ^3/uL Eosinophils # (Auto) 0 0-0.8 10 ^3/uL Basophils # (Auto) 0 0-0.2 10 ^3/uL Nucleated Red Blood Cells 0.1 % Sodium Level 140 136-145 mmol/L Potassium Level 3.2 L 3.5-5.1 mmol/L Chloride Level 102 98-107 mmol/L Carbon Dioxide Level 27 20-31 mmol/L Anion Gap 11 5-15 Blood Urea Nitrogen 10 9-23 mg/dL Creatinine 0.38 L 0.550-1.02 mg/dL Glomerular Filtration Rate Calc 114 >90 mL/min BUN/Creatinine Ratio 26.3 H 10.0-20.0 Serum Glucose 100 74-106 mg/dL Calcium Level 8.2 L 8.7-10.4 mg/dL Total Bilirubin 0.6 0.2-1.0 mg/dL Aspartate Amino Transferase (AST) 82 H 13-40 U/L Alanine Aminotransferase (ALT) 23 7-40 U/L Alkaline Phosphatase 147 H 46-116 U/L B-Type Natriuretic Peptide 120.24 0-100 pg/mL Total Protein 6.5 5.7-8.2 g/dL Albumin 2.6 L 3.2-4.8 g/dL SEPSIS Sepsis Screen Date sepsis recognized/suspect: Jul 04, 2025 Time Sepsis recognized/suspect: 1154 Recent Procedure: No On Antibiotic Therapy: No Respiratory Rate >20: No Heart Rate >90: No Temp<36 C (96.8 F) or >38.3 C: No SBP <90 or MAP <65 mmHG: No New Acute Mental Status Change: No Is the patient on CPAP, BIPAP,: No Physician Orders Electrocardigram (07/04/25 16:15) Clonidine Hcl Tablet (Catapres Tablet) (07/04/25 19:15) Lisinopril Tablet (Zestril Tablet) (07/05/25 10:00) Ceftriaxone 1gm/50ml (Rocephin) (07/05/25 09:00) Urine Bacterial Culture (07/04/25 19:15) Basic Metabolic Panel (07/05/25 04:00) Admit (07/04/25 19:15) Hydrocodone-Acet 5/325mg Tab ([place] 5/32 (07/04/25 19:15) Ondansetron Hcl (Zofran) (07/04/25 19:15) Enoxaparin Sodium (Lovenox) (07/05/25 10:00) Cardiac Diet-2gna,Lofat,Lochol (07/05/25 Breakfast) Echo 2d Mode Cardiac Dop (07/04/25 19:15) Condition: Stable (07/04/25 19:15) Acetaminophen Tablet (Tylenol Tablet) (07/04/25 19:15) Bedrest With Bathroom Privileg (07/04/25 19:15) Vital Signs Date Time Temp Pulse Resp B/P (MAP) Pulse Ox O2 Delivery O2 Flow Rate FiO2 07/04/25 20:14 165/84 (111) 07/04/25 19:07 163/72 07/04/25 16:23 92 Laboratory Tests Test 07/04/25 13:31 White Blood Count 7.0 10^3/uL (4.4-10.8) Medications Medications Dose Ordered Sig/Og Route Start Time Stop Time Status Last Admin Dose Admin Acetaminophen/ Hydrocodone Bitart 1 tab ONCE ONCE PO 07/04/25 17:15 07/04/25 17:16 DC 07/04/25 18:11 1 TAB Ceftriaxone Sodium 50 ml @ 100 mls/hr ONCE ONCE IV 07/04/25 16:30 07/04/25 17:18 DC 07/04/25 19:07 100 MLS/HR Furosemide 40 mg ONCE ONCE IV 07/04/25 16:30 07/04/25 17:18 DC 07/04/25 19:07 40 MG Assessment/Plan Assessment/Plan Assessment Accelerated hypertension Urinary tract infection Bilateral pedal edema, rule out DVT Rule out heart failure Plan Admit the patient to Med surge to the hospitalist Resume home medications Echocardiogram pending Bilateral DVT study pending Continue treatment per orders. Plan discussed with: Patient My Orders Orders - KIM BRUCE Procedure Category Date Status Time Clonidine Hcl Tablet PHA 07/04/25 In Process (Catapres Tablet) 19:15 Lisinopril Tablet PHA 07/05/25 In Process (Zestril Tablet) 10:00 Ceftriaxone 1gm/50ml PHA 07/05/25 In Process (Rocephin) 09:00 Urine Bacterial PAULA 07/04/25 In Process Culture 19:15 Basic Metabolic Panel LAB 07/05/25 Verified 04:00 Admit ADMIT 07/04/25 Transmitted 19:15 Hydrocodone-Acet PHA 07/04/25 In Process 5/325mg Tab ([place] 19:15 Ondansetron Hcl PHA 07/04/25 In Process (Zofran) 19:15 Enoxaparin Sodium PHA 07/05/25 In Process (Lovenox) 10:00 Cardiac DIET 07/05/25 Transmitted Diet-2gna,Lofat,Lochol Breakfast Echo 2d Mode Cardiac US 07/04/25 Logged DOP 19:15 Condition: Stable ALEXANDER 07/04/25 In Process 19:15 Acetaminophen Tablet PHA 07/04/25 In Process (Tylenol Tablet) 19:15 Bedrest With Bathroom ALEXANDER 07/04/25 In Process Privileg 19:15 Date of Service: Jul 04, 2025 Billing Provider: KIM BRUCE Common Visit Codes: [id number] INP/OBS CARE (HIGH) KIM BRUCE Jul 04, 2025 22:49
--- NOTE | 2025-07-04 23:30 | DVH ---
CLINICAL HISTORY: Bilateral leg swelling and pain r/o dvt TECHNIQUE: Color and duplex doppler imaging of the bilateral lower extremity veins was performed. Vessel compression if possible was also performed. WID: COMPARISON: None FINDINGS: Right Lower Extremity: Right common femoral vein: Normal compressibility and flow. Right femoral vein: Normal compressibility and flow. Right popliteal vein: Normal compressibility and flow. Left Lower Extremity: Left common femoral vein: Normal compressibility and flow. Left femoral vein: Normal compressibility and flow. Left popliteal vein: Normal compressibility and flow. IMPRESSION: 1. NO SONOGRAPHIC EVIDENCE FOR DEEP VENOUS THROMBOSIS IN THE BILATERAL LOWER EXTREMITY VEINS.
[2025-07-05] VITALS (7 sets, daily range): BP systolic 148–163; BP diastolic 77–89; PULSE 77–94; RESP 14–20; TEMP 97.8–98.5; O2SAT 92–97
[2025-07-05] MEDS: HYDROcodone-ACET 5/325MG TAB PO PRN (05:14)
[2025-07-05 05:41] LABS: Chloride 105 mmol/L (98-107); Sodium 144 mmol/L (136-145)
[2025-07-05 05:42] LABS: Anion Gap 9 (5-15); Carbon Dioxide 30 mmol/L (20-31)
[2025-07-05 05:47] LABS: BUN/Creatinine Ratio 20.5 (10.0-20.0); Blood Urea Nitrogen 9 mg/dL (9-23); Glucose 91 mg/dL (74-106)
[2025-07-05 05:53] LABS: Calcium 8.2 mg/dL (8.7-10.4); Potassium 2.9 mmol/L (3.5-5.1)
[2025-07-05] MEDS: LISINOPRIL 5 MG TAB PO SCH (09:53)
[2025-07-05] MEDS: FUROSEMIDE 20 MG TAB PO SCH (09:54)
[2025-07-05] MEDS: ENOXAPARIN SOD 40 MG/0.4 ML SYRINGE SC SCH (09:54)
[2025-07-05] MEDS: POTASSIUM CHLORIDE 40 MEQ, LIDOCAINE 1% (LOCAL ANESTH.) 4 ML in SODIUM CHL 0.9% 250 ML IV ONE (13:00)
[2025-07-05] MEDS: POTASSIUM CHL 20 Meq TABLET PO ONE (13:54)
--- NOTE | 2025-07-05 15:43 | DVHPN2 ---
Subjective OVERNIGHT EVENTS NOTED. PATIENT IS HERE FOR BILATERAL LEG SWELLING. Changes from previous H/P or p: No Changes Objective Vitals Vital Signs Date Time Temp Pulse Resp B/P (MAP) Pulse Ox O2 Delivery O2 Flow Rate FiO2 07/05/25 12:30 98.1 83 14 161/89 (113) 97 98.1 07/05/25 08:00 Room Air* 0 21 Exam HEENT PUPILS ARE REACTIVE NECK IS SUPPLE CV IS S1-S2 REGULAR RATE AND RHYTHM RESPIRATORY DIMINISHED BREATH SOUNDS BASES GI POSITIVE BOWEL SOUND EXTREMITY TRACE EDEMA ESCAPEMENT MAKER NO MOTOR DEFICIT Medications Current Medications Medications Dose Ordered Sig/Og Route Start Time Stop Time Status Last Admin Dose Admin Clonidine HCl 0.1 mg Q6HP PRN PO 07/04/25 19:15 Lisinopril 5 mg DAILY PO 07/05/25 10:00 07/05/25 09:53 5 MG Ceftriaxone Sodium 50 ml @ 100 mls/hr DAILY@09 IV 07/05/25 09:00 07/05/25 09:00 100 MLS/HR Acetaminophen/ Hydrocodone Bitart 1 tab Q4HP PRN PO 07/04/25 19:15 07/05/25 05:14 1 TAB Ondansetron HCl 4 mg Q4HP PRN IV 07/04/25 19:15 Enoxaparin Sodium 40 mg DAILY SC 07/05/25 10:00 07/05/25 09:54 40 MG Acetaminophen 650 mg Q6HP PRN PO 07/04/25 19:15 Furosemide 20 mg DAILY PO 07/05/25 10:00 07/05/25 09:54 20 MG Laboratory Results Laboratory Tests 07/04/25 13:31 07/05/25 04:40 Chemistry Test 07/05/25 04:40 Calcium Level 8.2 mg/dL (8.7-10.4) L Urinalysis Test 07/04/25 14:40 Urine Color [place] (Yellow) H Urine Clarity Turbid (Clear) H Urine pH 6.5 (5.0-9.0) Urine Specific [place] 1.030 (1.001-1.035) Urine Protein 1+ (Negative) H Urine Ketones Trace (Negative) Urine Blood Negative /uL (Negative) Urine Nitrite Negative (Negative) Urine Bilirubin 1+ (Negative) H Urine Urobilinogen Over mg/dL (Negative) Urine Leukocyte Esterase 1+ /uL (Negative) Urine RBC 3 /hpf (0 - 4) Urine Microscopic WBC 13 /HPF (0-5) H Urine Squamous Epithelial Cells Many /hpf (<5) Urine Bacteria None seen /hpf (None Seen) Urine Mucus Few (None Seen) Urine Yeast (Budding) Occasional /hpf (None Urine Glucose Normal mg/dL (Normal) Microbiology Microbiology Date/Time Source Procedure Growth Status 07/04/25 14:40 Voided Urine Urine Culture - Preliminary Resulted Assessment/Plan Assessment/Plan 59-YEAR-OLD FEMALE WITH A KNOWN HISTORY OF HYPERTENSION PRESENTED TO THE HOSPITAL WITH THE INCREASING BILATERAL LEG SWELLING FOUND TO HAVE 1. BILATERAL LEG SWELLING 2. HYPERTENSIVE URGENCY 3. MILD UTI -CONTINUE HYPERTENSIVE MEDS, 2D ECHO CARDIOLOGY CONSULTATION, EVALUATE FOR ANY CONGESTIVE HEART FAILURE WITH DIASTOLIC DYSFUNCTION Plan discussed with: Patient My Orders Orders - ZACK FERNANDEZ MD Procedure Category Date Status Time * Cardiology Consult CONS 07/05/25 Transmitted 12:46 Potassium Chloride PHA 07/05/25 In Process (Potassium Chloride). 13:00 Mobile Designer ORDERS 07/05/25 Transmitted 13:11 Date of Service: Jul 05, 2025 Billing Provider: ZACK FERNANDEZ MD Common Visit Codes: [id number] INP/OBS CARE(HIGH) ZACK FERNANDEZ MD Jul 05, 2025 15:43
[2025-07-05] MEDS: ACETAMINOPHEN 325 MG TAB PO PRN (20:30)
[2025-07-06] VITALS (7 sets, daily range): BP systolic 131–161; BP diastolic 77–91; PULSE 76–90; RESP 18–20; TEMP 37.2; O2SAT 95–97
[2025-07-06 08:50] LABS: Hematocrit 35.7 % (36.0-46.0); Hemoglobin 11.6 g/dL (12.2-16.2); Mean Corpuscular Hemoglobin 28.9 pg (28.0-32.0); Mean Corpuscular Volume 89.1 fL (80.0-100.0); Nucleated Red Blood Cells % 0.1 %
[2025-07-06 09:00] LABS: Potassium 3.9 mmol/L (3.5-5.1); Sodium 143 mmol/L (136-145)
[2025-07-06 09:01] LABS: Anion Gap 7 (5-15); Carbon Dioxide 28 mmol/L (20-31)
[2025-07-06 09:02] LABS: Calcium 8.2 mg/dL (8.7-10.4); Chloride 108 mmol/L (98-107)
[2025-07-06 09:06] LABS: BUN/Creatinine Ratio 22.2 (10.0-20.0); Blood Urea Nitrogen 10 mg/dL (9-23); Triglycerides 122 mg/dL (< 150)
[2025-07-06 09:07] LABS: Magnesium 1.8 mg/dL (1.6-2.6)
[2025-07-06 09:08] LABS: Cholesterol 79 mg/dL (< 200)
[2025-07-06 09:31] LABS: Glucose 117 mg/dL (74-106); HDL Cholesterol 12 mg/dL (40-59)
--- NOTE | 2025-07-06 09:55 | ECG ---
[facility] Test Date: 2025-07-06 Test Time: 09:45:31 Pat Name: ANDRADE MARTIN Department: Respiratoy Room: 0240 A Gender: F Outpatient Interviewing Clerk: sofiya : 1965 Requested By: ARABELLA BROWN Order Number: [id number] Reading MD: Tee Oreilly Measurements Intervals [place] Rate: 82 P: 15 MD: 131 QRS: 2 QRSD: 80 T: 8 QT: 371 QTc: 434 Interpretive Statements Sinus rhythm Baseline wander in lead(s) V1 Electronically Signed On 07-11-2025 9:47:24 PST by Tee Oreilly Please click the below link to view image of tracing.
--- NOTE | 2025-07-06 10:56 | DVHINCON2 ---
ARABELLA BROWN [facility] 07/06/25 1056: Date Seen: Jul 06, 2025 Referring Physician MD [place] Reason for Consultation Bilateral lower extremity edema History of Present Illness This is a 59-year-old female patient who presents to the emergency room with chief complaint of bilateral lower extremity edema for five days prior to emergency room arrival. The patient reports that she has noticed a worsening in her lower extremity edema which prompted her to come to the emergency room. Cardiology has been consulted at this time for CHF evaluation. No twelve lead electrocardiogram was done in the emergency room or prior to assessment. A twelve lead electrocardiogram was ordered and obtained at time of assessment and reveals normal sinus rhythm without any significant ST segment changes (baseline wander in lead V1). The patient denies any chest pain or shortness of breath at time of assessment. The patient does mention that at home she has been experiencing dyspnea on exertion as well as orthopnea. Significant past medical history includes hypertension, brain aneurysm status post endovascular coiling, and morbid obesity. Past Medical History Past medical history reviewed. No other significant than mentioned above. Past Surgical History Endovascular coiling Family History: Patient reports no known family medical history. Family History Family history reviewed. Social History Denies the use of tobacco, alcohol or illicit drugs. Allergies: Coded Allergies: NO KNOWN ALLERGIES (Unverified , 12/17/13) Home Meds Active Scripts Cephalexin Monohydrate (Cephalexin) 500 Mg Cap, 1 CAP PO TID for 3 Days, #9 CAP Prov:ZACK FERNANDEZ MD 07/06/25 Lisinopril (Lisinopril) 5 Mg Tab, 5 MG PO DAILY, #30 TAB Prov:ZACK FERNANDEZ MD 07/06/25 Furosemide (Furosemide) 20 Mg Tab, 20 MG PO DAILY for 30 Days, #30 TAB Prov:ZACK FERNANDEZ MD 07/06/25 Prednisone (Prednisone) 20 Mg Tab, 60 MG PO DAILY, #18 TAB Prov:CARLOS HEATH 05/19/25 Promethazine-Dm (Promethazine Dm 6.25-15 mg/5Ml) 1 Ally Ally, 5 ML PO TID, #180 ML Prov:CARLOS HEATH 05/19/25 Levofloxacin Hemihydrate (LEVAQUIN 500 MG) 500 Mg Tab, 1 TAB PO DAILY, #10 TAB Prov:CARLOS HEATH 05/19/25 Reported Medications Lisinopril (Lisinopril) 2.5 Mg Tab, 2.5 MG PO DAILY@DINNER for 30 Days, MG 06/13/21 Home Meds Home medications reviewed. Review of Systems Constitutional: No symptom reported Ears, Nose, & Throat: No symptom reported Eyes: No symptom reported Neurological: No symptoms reported Pulmonary/Respiratory: No symptoms reported Cardiovascular: Bilateral lower extremity edema Gastrointestinal: No symptom reported Genitourinary: No symptom reported Musculoskeletal: No symptom reported Skin: No symptom reported Psychiatric: No symptom reported Endocrine: No symptom reported Hematologic/Lymphatic: No symptom reported Vital Signs Vital Signs Date Time Temp Pulse Resp B/P (MAP) Pulse Ox O2 Delivery O2 Flow Rate FiO2 07/06/25 09:11 158/85 07/06/25 08:45 98.7 78 20 97 98.7 07/06/25 08:00 Room Air* 0 21 Physical Exam General Appearance: Cooperative. Morbidly obese Pulmonary/Respiratory: Clear, bilateral breaths sounds. Cardiovascular/Chest: Regular rate and rhythm. Peripheral Pulses: 2+ Radial (R). 2+ Radial (L). 2+ Pedal (R). 2+ Pedal (L) Abdominal Exam: Normal bowel sounds. Ankle Exam: 2+ pitting edema Lower extremities: 2+ pitting edema Neuro/Mental Status: A/OX4, coherent. Thoughts/Psych: Normal thought pattern. Appropriate mood and affect. Good judgment and insight. Appearance: No acute distress. Skin Exam: Normal inspection. Normal color. Warm and dry. Labs/Diagnostic Data Labs Test 07/06/25 08:35 07/04/25 14:40 07/04/25 13:31 Range/Units White Blood Count 6.0 4.4-10.8 10^3/uL Red Blood Count 4.00 4.0-5.20 10^6/uL Hemoglobin 11.6 L 12.2-16.2 g/dL Hematocrit 35.7 L 36.0-46.0 % Mean Corpuscular Volume 89.1 80.0-100.0 fL Mean Corpuscular Hemoglobin 28.9 28.0-32.0 pg Mean Corpuscular Hemoglobin Concent 32.4 32.0-36.0 g/dL Red Cell Distribution Width 15.1 H 11.8-14.3 % Platelet Count 349 140-450 10^3/uL Mean Platelet Volume 7.3 6.9-10.8 fL Neutrophils (%) (Auto) 64.7 37.0-80.0 % Lymphocytes (%) (Auto) 31.2 10.0-50.0 % Monocytes (%) (Auto) 2.3 0.0-12.0 % Eosinophils (%) (Auto) 1.3 0.0-7.0 % Basophils (%) (Auto) 0.5 0.0-2.0 % Neutrophils # (Auto) 3.9 1.6-8.6 10 ^3/uL Lymphocytes # (Auto) 1.9 0.4-5.4 10 ^3/uL Monocytes # (Auto) 0.1 0-1.3 10 ^3/uL Eosinophils # (Auto) 0.1 0-0.8 10 ^3/uL Basophils # (Auto) 0 0-0.2 10 ^3/uL Nucleated Red Blood Cells 0.1 % Sodium Level 143 136-145 mmol/L Potassium Level 3.9 3.5-5.1 mmol/L Chloride Level 108 H 98-107 mmol/L Carbon Dioxide Level 28 20-31 mmol/L Anion Gap 7 5-15 Blood Urea Nitrogen 10 9-23 mg/dL Creatinine 0.45 L 0.550-1.02 mg/dL Glomerular Filtration Rate Calc 109 >90 mL/min BUN/Creatinine Ratio 22.2 H 10.0-20.0 Serum Glucose 117 H 74-106 mg/dL Calcium Level 8.2 L 8.7-10.4 mg/dL Magnesium Level 1.8 1.6-2.6 mg/dL Triglycerides Level 122 < 150 mg/dL Cholesterol Level 79 < 200 mg/dL LDL Cholesterol 45 < 100 mg/dL HDL Cholesterol 12 L 40-59 mg/dL Thyroid Stimulating Hormone (TSH) 1.67 0.55-4.78 uIU/mL Urine Color [place] H Yellow Urine Clarity Turbid H Clear Urine pH 6.5 5.0-9.0 Urine Specific [place] 1.030 1.001-1.035 Urine Protein 1+ H Negative Urine Ketones Trace Negative Urine Blood Negative Negative /uL Urine Nitrite Negative Negative Urine Bilirubin 1+ H Negative Urine Urobilinogen Over Negative mg/dL Urine Leukocyte Esterase 1+ Negative /uL Urine RBC 3 0 - 4 /hpf Urine Microscopic WBC 13 H 0-5 /HPF Urine Squamous Epithelial Cells Many <5 /hpf Urine Bacteria None seen None Seen /hpf Urine Mucus Few None Seen Urine Yeast (Budding) Occasional None Seen /hpf Urine Glucose Normal Normal mg/dL Total Bilirubin 0.6 0.2-1.0 mg/dL Aspartate Amino Transferase (AST) 82 H 13-40 U/L Alanine Aminotransferase (ALT) 23 7-40 U/L Alkaline Phosphatase 147 H 46-116 U/L B-Type Natriuretic Peptide 120.24 0-100 pg/mL Total Protein 6.5 5.7-8.2 g/dL Albumin 2.6 L 3.2-4.8 g/dL Microbiology Date/Time Source Procedure Growth Status 07/04/25 14:40 Voided Urine Urine Culture - Preliminary Resulted Assessment Acute on chronic HFpEF, NYHA class III Hypertensive urgency Hypokalemia, resolved History brain aneurysm status post endovascular coiling Morbid obesity Plan/Recommendation We will continue with the following plan/recommendations (Dr. Farr): * Transthoracic echocardiogram reveals EF of 60% * Aggressive blood pressure control as tolerated * [place] heart failure diagnostic criteria: Positive * Diuresis as tolerated * Consider SGLT2i as this is a class 2(a) recommendation per ACC HFpEF guidelines * Close cardiac surveillance Patient seen and examined at bedside with . There is no further inpatient cardiac workup indicated at this time. Thank you for allowing us to care for this patient. Please call with any questions or concerns. Critical care time spent: 44 minutes This medical document was created using an electronic medical record system with voice recognition software and computerized dictation system. Although this document has been carefully reviewed, there might still be some phonetic and typographical errors. Occasional wrong-word or ``sound-alike substitutions may have occurred due to the inherent limitations of voice recognition software. These areas are purely typographical due to imperfections of the software programs and do not reflect any compromise in the patient's medical care. Please read the chart carefully and recognize, using context, where these substitutions have occurred. Plan discussed with: Patient NYHA Physical activity limitations: Class3(Marked) ordinary (activity causes symtoms) Date of Service: Jul 06, 2025 Billing Provider: ARABELLA BROWN Cardiology Common Codes: [id number] INP/OBS CARE (High) Cardiology Consultation Codes: [id number] CONSULT <45MIN DONNA FARR MD 07/06/25 1528: Family History: Patient reports no known family medical history. Allergies: Coded Allergies: NO KNOWN ALLERGIES (Unverified , 12/17/13) Home Meds Active Scripts Cephalexin Monohydrate (Cephalexin) 500 Mg Cap, 1 CAP PO TID for 3 Days, #9 CAP Prov:ZACK FERNANDEZ MD 07/06/25 Lisinopril (Lisinopril) 5 Mg Tab, 5 MG PO DAILY, #30 TAB Prov:ZACK FERNANDEZ MD 07/06/25 Furosemide (Furosemide) 20 Mg Tab, 20 MG PO DAILY for 30 Days, #30 TAB Prov:ZACK FERNANDEZ MD 07/06/25 Prednisone (Prednisone) 20 Mg Tab, 60 MG PO DAILY, #18 TAB Prov:CARLOS HEATH 05/19/25 Promethazine-Dm (Promethazine Dm 6.25-15 mg/5Ml) 1 Ally Ally, 5 ML PO TID, #180 ML Prov:CARLOS HEATH 05/19/25 Levofloxacin Hemihydrate (LEVAQUIN 500 MG) 500 Mg Tab, 1 TAB PO DAILY, #10 TAB Prov:CARLOS HEATH 05/19/25 Reported Medications Lisinopril (Lisinopril) 2.5 Mg Tab, 2.5 MG PO DAILY@DINNER for 30 Days, MG 06/13/21 Plan/Recommendation PT SEEN WITH CV TEAM AND GAS STATION CLERK PT HAS MORBID OBESITY AND DIASTOLIC DYSFUNCTION ECHO SHOWS WNL LVEF PRN DIURETICS KORINA ADD SGLT WILL SIGN OFF ARABELLA BROWN Jul 06, 2025 10:56 DONNA FARR MD Jul 06, 2025 15:28
--- NOTE | 2025-07-06 14:11 | DVHSR ---
APPROVED REPORT EXAM: Two-dimensional and M-mode echocardiogram with Doppler and color Doppler. Blood Pressure: 140/77 mmHg INDICATION EF RISK FACTORS Obesity: Height: 5' 3", Weight: 283 DIMENSIONS LVDd 4.5 (3.8-5.7cm) LA (2D) 4.4 (1.9-4.0cm) Aortic Root 2.9 (2.0-3.7cm) LVDs 3.1 (2.5-4.0cm) LA (MM) (1.9-4.0cm) Aortic Cusp Exc 1.6 (1.5-2.0cm) EF (%) 58.0 (55-70%) Rt. Atrium 4.2 (1.9-4.0cm) Asc. Aorta cm IVSd 0.9 (0.7-1.1cm) RV (D) (1.8-2.4cm) PWd 1.1 (0.7-1.1cm) Mitral Valve Mitral Mitral Stenosis E wave 1.20m/s MV Mean GR. mmHg A wave 1.10m/s MV Peak GR. mmHg E/A ratio 1.1 2D MVA cm2 Aortic Valve Aortic Valve Aortic Stenosis V1 1.20m/s AO Mean GR. 8mmHg V2 2.00m/s AO Peak GR. 17mmHg LVOT Diameter 2.1 (1.8-2.4cm) Doppler LISBETH 2.08cm2 Pulmonic Valve V2 0.70m/s Tricuspid Valve TR Velocity 2.70m/s RVSP 40mmHg Conclusion lvef 60% mild lvh left atrium enlarged no severe valve abnormalitiy noted
[2025-07-06] MEDS ORDERED: LISI-275 PO (15:26)
[2025-07-06] MEDS ORDERED: CEPH500C PO (15:26)
[2025-07-06] MEDS ORDERED: FURO20TA4 PO (15:26)
--- NOTE | 2025-07-06 15:30 | DVHDS2 ---
Discharge Summary Date of Admission Jul 04, 2025 at 19:15 Date of Discharge: Jul 06, 2025 Labs/Diagnostic Data: Laboratory Results Test 07/06/25 08:35 07/04/25 14:40 07/04/25 13:31 White Blood Count 6.0 10^3/uL (4.4-10.8) Red Blood Count 4.00 10^6/uL (4.0-5.20) Hemoglobin 11.6 g/dL (12.2-16.2) Hematocrit 35.7 % (36.0-46.0) Mean Corpuscular Volume 89.1 fL (80.0-100.0) Mean Corpuscular Hemoglobin 28.9 pg (28.0-32.0) Mean Corpuscular Hemoglobin Concent 32.4 g/dL (32.0-36.0) Red Cell Distribution Width 15.1 % (11.8-14.3) Platelet Count 349 10^3/uL (140-450) Mean Platelet Volume 7.3 fL (6.9-10.8) Neutrophils (%) (Auto) 64.7 % (37.0-80.0) Lymphocytes (%) (Auto) 31.2 % (10.0-50.0) Monocytes (%) (Auto) 2.3 % (0.0-12.0) Eosinophils (%) (Auto) 1.3 % (0.0-7.0) Basophils (%) (Auto) 0.5 % (0.0-2.0) Neutrophils # (Auto) 3.9 10 ^3/uL (1.6-8.6) Lymphocytes # (Auto) 1.9 10 ^3/uL (0.4-5.4) Monocytes # (Auto) 0.1 10 ^3/uL (0-1.3) Eosinophils # (Auto) 0.1 10 ^3/uL (0-0.8) Basophils # (Auto) 0 10 ^3/uL (0-0.2) Nucleated Red Blood Cells 0.1 % Sodium Level 143 mmol/L (136-145) Potassium Level 3.9 mmol/L (3.5-5.1) Chloride Level 108 mmol/L (98-107) Carbon Dioxide Level 28 mmol/L (20-31) Anion Gap 7 (5-15) Blood Urea Nitrogen 10 mg/dL (9-23) Creatinine 0.45 mg/dL (0.550-1.02) Glomerular Filtration Rate Calc 109 mL/min (>90) BUN/Creatinine Ratio 22.2 (10.0-20.0) Serum Glucose 117 mg/dL (74-106) Calcium Level 8.2 mg/dL (8.7-10.4) Magnesium Level 1.8 mg/dL (1.6-2.6) Triglycerides Level 122 mg/dL (< 150) Cholesterol Level 79 mg/dL (< 200) LDL Cholesterol 45 mg/dL (< 100) HDL Cholesterol 12 mg/dL (40-59) Thyroid Stimulating Hormone (TSH) 1.67 uIU/mL (0.55-4.78) Urine Color [place] (Yellow) Urine Clarity Turbid (Clear) Urine pH 6.5 (5.0-9.0) Urine Specific [place] 1.030 (1.001-1.035) Urine Protein 1+ (Negative) Urine Ketones Trace (Negative) Urine Blood Negative /uL (Negative) Urine Nitrite Negative (Negative) Urine Bilirubin 1+ (Negative) Urine Urobilinogen Over mg/dL (Negative) Urine Leukocyte Esterase 1+ /uL (Negative) Urine RBC 3 /hpf (0 - 4) Urine Microscopic WBC 13 /HPF (0-5) Urine Squamous Epithelial Cells Many /hpf (<5) Urine Bacteria None seen /hpf (None Seen) Urine Mucus Few (None Seen) Urine Yeast (Budding) Occasional /hpf (None Urine Glucose Normal mg/dL (Normal) Total Bilirubin 0.6 mg/dL (0.2-1.0) Aspartate Amino Transferase (AST) 82 U/L (13-40) Alanine Aminotransferase (ALT) 23 U/L (7-40) Alkaline Phosphatase 147 U/L (46-116) B-Type Natriuretic Peptide 120.24 pg/mL (0-100) Total Protein 6.5 g/dL (5.7-8.2) Albumin 2.6 g/dL (3.2-4.8) Other Laboratory Tests 07/06/25 08:35 Brief Hx & Hospital Course: 59-YEAR-OLD FEMALE WITH A KNOWN HISTORY OF HYPERTENSION PRESENTED TO THE HOSPITAL WITH THE INCREASING BILATERAL LEG SWELLING FOUND TO HAVE acute CHF exacerbation with diastolic dysfunction. Patient was given IV diuretics. Patient's blood pressure is controlled. Patient's has a mild UTI which treated with the IV antibiotics. Patient is cleared by Cardiology to be discharged with a close follow up as an outpatient with the PCP and Cardiology. Condition at Discharge: Stable Final Diagnosis/Problems List 59-YEAR-OLD FEMALE WITH A KNOWN HISTORY OF HYPERTENSION PRESENTED TO THE HOSPITAL WITH THE INCREASING BILATERAL LEG SWELLING FOUND TO HAVE 1. BILATERAL LEG SWELLING 2. HYPERTENSIVE URGENCY 3. MILD UTI Discharge Disposition: Home SNF Discharge Will this Physician continue t: No Discharge Instruct/Medications Diet: Cardiac 2g Na,low cholest Activity: No Restrictions, As Tolerated Follow Up/Referral: Please follow up with the PCP in one week Follow up with the Cardiology in 1-2 weeks. Medications: Lisinopril, Keflex, Lasix as prescribed. New Medications: Cephalexin Monohydrate (Cephalexin) 500 Mg Cap 1 CAP PO TID for 3 Days, #9 CAP Furosemide (Furosemide) 20 Mg Tab 20 MG PO DAILY for 30 Days, #30 TAB Lisinopril (Lisinopril) 5 Mg Tab 5 MG PO DAILY, #30 TAB Discontinued Medications: Levofloxacin Hemihydrate (Levaquin 500 Mg) 500 Mg Tab 1 TAB PO DAILY, #10 TAB Lisinopril (Lisinopril) 2.5 Mg Tab 2.5 MG PO DAILY@DINNER for 30 Days, MG Prednisone (Prednisone) 20 Mg Tab 60 MG PO DAILY, #18 TAB Promethazine-Dm (Promethazine Dm 6.25-15 mg/5Ml) 1 Ally Ally 5 ML PO TID, #180 ML Scheduled Cephalexin Monohydrate (Cephalexin), 1 CAP PO TID Furosemide (Furosemide), 20 MG PO DAILY Levofloxacin Hemihydrate (Levaquin 500 Mg), 1 TAB PO DAILY Lisinopril (Lisinopril), 2.5 MG PO DAILY@DINNER, (Reported) Lisinopril (Lisinopril), 5 MG PO DAILY Prednisone (Prednisone), 60 MG PO DAILY Promethazine-Dm (Promethazine Dm 6.25-15 mg/5Ml), 5 ML PO TID Discharge Statement: "Patient was advised to return to the ER or call 911 if any headaches, dizziness, shortness of breath, chest pain, abdominal pain, bleeding, fevers, or worsening of medical condition. Patient was counseled about treatment plan, medications, possible side effects, patientverbalized understanding. All questions were answered to the best of my ability. This discharge took greater then 30 minutes in planning, reviewing documentation, counseling the patient, and discussing with other team members." ASSESSMENT ASSESSMENT Assessment 59-YEAR-OLD FEMALE WITH A KNOWN HISTORY OF HYPERTENSION PRESENTED TO THE HOSPITAL WITH THE INCREASING BILATERAL LEG SWELLING FOUND TO HAVE 1. BILATERAL LEG SWELLING 2. HYPERTENSIVE URGENCY 3. MILD UTI Date of Service: Jul 06, 2025 Billing Provider: ZACK FERNANDEZ MD Common Visit Codes: 96886-KOE/OBS DISCH DAY >30min ZACK FERNANDEZ MD Jul 06, 2025 15:30
--- NOTE | 2025-07-06 15:53 | DVHINCON2 ---
Date of service: Jul 06, 2025 History of Present Illness This is a 59-year-old female patient who presents to the emergency room with chief complaint of bilateral lower extremity edema for five days prior to em ergency room arrival. The patient reports that she has noticed a worsening in her lower extremity edema which prompted her to come to the emergency room. Cardiology has been consulted at this time for CHF evaluation. No twelve lead electrocardiogram was done in the emergency room or prior to assessment. A twelve lead electrocardiogram was ordered and obtained at time of assessment and reveals normal sinus rhythm without any significant ST segment changes (baseline wander in lead V1). The patient denies any chest pain or shortness of breath at time of assessment. The patient does mention that at home she has been experiencing dyspnea on exertion as well as orthopnea. Significant past medical history includes hypertension, brain aneurysm status post endovascular coiling, and morbid obesity. Past Medical History Past Medical History Past medical history reviewed. No other significant than mentioned above. Past Surgical History Past Surgical History Endovascular coiling Family & Social History Family History: Patient reports no known family medical history. Family History Family history reviewed. Social History Denies the use of tobacco, alcohol or illicit drugs. Allergies and Medications Allergies: Coded Allergies: NO KNOWN ALLERGIES (Unverified , 12/17/13) Home Meds Active Scripts Cephalexin Monohydrate (Cephalexin) 500 Mg Cap, 1 CAP PO TID for 3 Days, #9 CAP Prov:ZACK FERNANDEZ MD 07/06/25 Lisinopril (Lisinopril) 5 Mg Tab, 5 MG PO DAILY, #30 TAB Prov:ZACK FERNANDEZ MD 07/06/25 Furosemide (Furosemide) 20 Mg Tab, 20 MG PO DAILY for 30 Days, #30 TAB Prov:ZACK FERNANDEZ MD 07/06/25 Prednisone (Prednisone) 20 Mg Tab, 60 MG PO DAILY, #18 TAB Prov:CARLOS HEATH 05/19/25 Promethazine-Dm (Promethazine Dm 6.25-15 mg/5Ml) 1 Ally Ally, 5 ML PO TID, #180 ML Prov:CARLOS HEATH 05/19/25 Levofloxacin Hemihydrate (LEVAQUIN 500 MG) 500 Mg Tab, 1 TAB PO DAILY, #10 TAB Prov:CARLOS HEATH 05/19/25 Reported Medications Lisinopril (Lisinopril) 2.5 Mg Tab, 2.5 MG PO DAILY@DINNER for 30 Days, MG 06/13/21 Home Meds Home medications reviewed. Review of Systems Review of Systems Constitutional: No symptom reported Ears, Nose, & Throat: No symptom reported Eyes: No symptom reported Neurological: No symptoms reported Pulmonary/Respiratory: No symptoms reported Cardiovascular: Bilateral lower extremity edema Gastrointestinal: No symptom reported Genitourinary: No symptom reported Musculoskeletal: No symptom reported Skin: No symptom reported Psychiatric: No symptom reported Endocrine: No symptom reported Hematologic/Lymphatic: No symptom reported Exam Vital Signs Vital Signs Date Time Temp Pulse Resp B/P (MAP) Pulse Ox O2 Delivery O2 Flow Rate FiO2 07/06/25 09:11 158/85 07/06/25 08:45 98.7 78 20 97 98.7 07/06/25 08:00 Room Air* 0 21 Physical Exam General Appearance: Cooperative. Morbidly obese Pulmonary/Respiratory: Clear, bilateral breaths sounds. Cardiovascular/Chest: Regular rate and rhythm. Peripheral Pulses: 2+ Radial (R). 2+ Radial (L). 2+ Pedal (R). 2+ Pedal (L) Abdominal Exam: Normal bowel sounds. Ankle Exam: 2+ pitting edema Lower extremities: 2+ pitting edema Neuro/Mental Status: A/OX4, coherent. Thoughts/Psych: Normal thought pattern. Appropriate mood and affect. Good judgment and insight. Appearance: No acute distress. Skin Exam: Normal inspection. Normal color. Warm and dry. Labs/Diagnostic Data Labs/Diagnostic Data Labs Test 07/06/25 08:35 07/04/25 14:40 07/04/25 13:31 Range/Units White Blood Count 6.0 4.4-10.8 10^3/uL Red Blood Count 4.00 4.0-5.20 10^6/uL Hemoglobin 11.6 L 12.2-16.2 g/dL Hematocrit 35.7 L 36.0-46.0 % Mean Corpuscular Volume 89.1 80.0-100.0 fL Mean Corpuscular Hemoglobin 28.9 28.0-32.0 pg Mean Corpuscular Hemoglobin Concent 32.4 32.0-36.0 g/dL Red Cell Distribution Width 15.1 H 11.8-14.3 % Platelet Count 349 140-450 10^3/uL Mean Platelet Volume 7.3 6.9-10.8 fL Neutrophils (%) (Auto) 64.7 37.0-80.0 % Lymphocytes (%) (Auto) 31.2 10.0-50.0 % Monocytes (%) (Auto) 2.3 0.0-12.0 % Eosinophils (%) (Auto) 1.3 0.0-7.0 % Basophils (%) (Auto) 0.5 0.0-2.0 % Neutrophils # (Auto) 3.9 1.6-8.6 10 ^3/uL Lymphocytes # (Auto) 1.9 0.4-5.4 10 ^3/uL Monocytes # (Auto) 0.1 0-1.3 10 ^3/uL Eosinophils # (Auto) 0.1 0-0.8 10 ^3/uL Basophils # (Auto) 0 0-0.2 10 ^3/uL Nucleated Red Blood Cells 0.1 % Sodium Level 143 136-145 mmol/L Potassium Level 3.9 3.5-5.1 mmol/L Chloride Level 108 H 98-107 mmol/L Carbon Dioxide Level 28 20-31 mmol/L Anion Gap 7 5-15 Blood Urea Nitrogen 10 9-23 mg/dL Creatinine 0.45 L 0.550-1.02 mg/dL Glomerular Filtration Rate Calc 109 >90 mL/min BUN/Creatinine Ratio 22.2 H 10.0-20.0 Serum Glucose 117 H 74-106 mg/dL Calcium Level 8.2 L 8.7-10.4 mg/dL Magnesium Level 1.8 1.6-2.6 mg/dL Triglycerides Level 122 < 150 mg/dL Cholesterol Level 79 < 200 mg/dL LDL Cholesterol 45 < 100 mg/dL HDL Cholesterol 12 L 40-59 mg/dL Thyroid Stimulating Hormone (TSH) 1.67 0.55-4.78 uIU/mL Urine Color [place] H Yellow Urine Clarity Turbid H Clear Urine pH 6.5 5.0-9.0 Urine Specific [place] 1.030 1.001-1.035 Urine Protein 1+ H Negative Urine Ketones Trace Negative Urine Blood Negative Negative /uL Urine Nitrite Negative Negative Urine Bilirubin 1+ H Negative Urine Urobilinogen Over Negative mg/dL Urine Leukocyte Esterase 1+ Negative /uL Urine RBC 3 0 - 4 /hpf Urine Microscopic WBC 13 H 0-5 /HPF Urine Squamous Epithelial Cells Many <5 /hpf Urine Bacteria None seen None Seen /hpf Urine Mucus Few None Seen Urine Yeast (Budding) Occasional None Seen /hpf Urine Glucose Normal Normal mg/dL Total Bilirubin 0.6 0.2-1.0 mg/dL Aspartate Amino Transferase (AST) 82 H 13-40 U/L Alanine Aminotransferase (ALT) 23 7-40 U/L Alkaline Phosphatase 147 H 46-116 U/L B-Type Natriuretic Peptide 120.24 0-100 pg/mL Total Protein 6.5 5.7-8.2 g/dL Albumin 2.6 L 3.2-4.8 g/dL Microbiology Date/Time Source Procedure Growth Status 07/04/25 14:40 Voided Urine Urine Culture - Preliminary Resulted Assessment/Plan Assessment Acute on chronic HFpEF, NYHA class III Hypertensive urgency Hypokalemia, resolved History brain aneurysm status post endovascular coiling Morbid obesity Plan/Recommendation We will continue with the following plan/recommendations (Dr. Farr): * Transthoracic echocardiogram reveals EF of 60% Family History: Patient reports no known family medical history. Allergies: Coded Allergies: NO KNOWN ALLERGIES (Unverified , 12/17/13) Home Meds Active Scripts Cephalexin Monohydrate (Cephalexin) 500 Mg Cap, 1 CAP PO TID for 3 Days, #9 CAP Prov:ZACK FERNANDEZ MD 07/06/25 Lisinopril (Lisinopril) 5 Mg Tab, 5 MG PO DAILY, #30 TAB Prov:ZACK FERNANDEZ MD 07/06/25 Furosemide (Furosemide) 20 Mg Tab, 20 MG PO DAILY for 30 Days, #30 TAB Prov:ZACK FERNANDEZ MD 07/06/25 Prednisone (Prednisone) 20 Mg Tab, 60 MG PO DAILY, #18 TAB Prov:CARLOS HEATH 05/19/25 Promethazine-Dm (Promethazine Dm 6.25-15 mg/5Ml) 1 Ally Ally, 5 ML PO TID, #180 ML Prov:CARLOS HEATH 05/19/25 Levofloxacin Hemihydrate (LEVAQUIN 500 MG) 500 Mg Tab, 1 TAB PO DAILY, #10 TAB Prov:CARLOS HEATH 05/19/25 Reported Medications Lisinopril (Lisinopril) 2.5 Mg Tab, 2.5 MG PO DAILY@DINNER for 30 Days, MG 06/13/21 Vital Signs Vital Signs Date Time Temp Pulse Resp B/P (MAP) Pulse Ox O2 Delivery O2 Flow Rate FiO2 07/06/25 12:40 98.9 76 18 131/85 (100) 96 98.9 07/06/25 08:00 Room Air* 0 21 Labs/Diagnostic Data Labs Test 07/06/25 08:35 07/04/25 14:40 07/04/25 13:31 Range/Units White Blood Count 6.0 4.4-10.8 10^3/uL Red Blood Count 4.00 4.0-5.20 10^6/uL Hemoglobin 11.6 L 12.2-16.2 g/dL Hematocrit 35.7 L 36.0-46.0 % Mean Corpuscular Volume 89.1 80.0-100.0 fL Mean Corpuscular Hemoglobin 28.9 28.0-32.0 pg Mean Corpuscular Hemoglobin Concent 32.4 32.0-36.0 g/dL Red Cell Distribution Width 15.1 H 11.8-14.3 % Platelet Count 349 140-450 10^3/uL Mean Platelet Volume 7.3 6.9-10.8 fL Neutrophils (%) (Auto) 64.7 37.0-80.0 % Lymphocytes (%) (Auto) 31.2 10.0-50.0 % Monocytes (%) (Auto) 2.3 0.0-12.0 % Eosinophils (%) (Auto) 1.3 0.0-7.0 % Basophils (%) (Auto) 0.5 0.0-2.0 % Neutrophils # (Auto) 3.9 1.6-8.6 10 ^3/uL Lymphocytes # (Auto) 1.9 0.4-5.4 10 ^3/uL Monocytes # (Auto) 0.1 0-1.3 10 ^3/uL Eosinophils # (Auto) 0.1 0-0.8 10 ^3/uL Basophils # (Auto) 0 0-0.2 10 ^3/uL Nucleated Red Blood Cells 0.1 % Sodium Level 143 136-145 mmol/L Potassium Level 3.9 3.5-5.1 mmol/L Chloride Level 108 H 98-107 mmol/L Carbon Dioxide Level 28 20-31 mmol/L Anion Gap 7 5-15 Blood Urea Nitrogen 10 9-23 mg/dL Creatinine 0.45 L 0.550-1.02 mg/dL Glomerular Filtration Rate Calc 109 >90 mL/min BUN/Creatinine Ratio 22.2 H 10.0-20.0 Serum Glucose 117 H 74-106 mg/dL Calcium Level 8.2 L 8.7-10.4 mg/dL Magnesium Level 1.8 1.6-2.6 mg/dL Triglycerides Level 122 < 150 mg/dL Cholesterol Level 79 < 200 mg/dL LDL Cholesterol 45 < 100 mg/dL HDL Cholesterol 12 L 40-59 mg/dL Thyroid Stimulating Hormone (TSH) 1.67 0.55-4.78 uIU/mL Urine Color [place] H Yellow Urine Clarity Turbid H Clear Urine pH 6.5 5.0-9.0 Urine Specific [place] 1.030 1.001-1.035 Urine Protein 1+ H Negative Urine Ketones Trace Negative Urine Blood Negative Negative /uL Urine Nitrite Negative Negative Urine Bilirubin 1+ H Negative Urine Urobilinogen Over Negative mg/dL Urine Leukocyte Esterase 1+ Negative /uL Urine RBC 3 0 - 4 /hpf Urine Microscopic WBC 13 H 0-5 /HPF Urine Squamous Epithelial Cells Many <5 /hpf Urine Bacteria None seen None Seen /hpf Urine Mucus Few None Seen Urine Yeast (Budding) Occasional None Seen /hpf Urine Glucose Normal Normal mg/dL Total Bilirubin 0.6 0.2-1.0 mg/dL Aspartate Amino Transferase (AST) 82 H 13-40 U/L Alanine Aminotransferase (ALT) 23 7-40 U/L Alkaline Phosphatase 147 H 46-116 U/L B-Type Natriuretic Peptide 120.24 0-100 pg/mL Total Protein 6.5 5.7-8.2 g/dL Albumin 2.6 L 3.2-4.8 g/dL Microbiology Date/Time Source Procedure Growth Status 07/04/25 14:40 Voided Urine Urine Culture - Preliminary Resulted Plan/Recommendation echo is normal lvef start lasix prn but bnp is not high pt has varicose veins on exam, likely Cvi Compresson stockings consider sglt on dc for diastolic dysfunction signing off Plan discussed with: Patient FARRDONNA MD Jul 06, 2025 15:53
== END 2025-07-06 18:16 | disposition home or self-care (01) | DRG 194 ==
LOC: ER 11:45 → OVERFLOW 19:15 → EAST 07-05 17:25
PROVIDERS: ADMIT Internal Medicine; ATTEND Internal Medicine
DX: I11.0 Hypertensive heart disease with heart failure (principal); I16.0 Hypertensive urgency; N39.0 Urinary tract infection, site not specified; I50.33 Acute on chronic diastolic (congestive) heart failure; E66.01 Morbid (severe) obesity due to excess calories; E87.6 Hypokalemia; Z79.899 Other long term (current) drug therapy; Z79.2 Long term (current) use of antibiotics; Z91.148 Patient's other noncompliance with medication regimen for other reason; Z68.42 Body mass index [BMI] 45.0-49.9, adult
CPT/HCPCS: 36415; 71046; 80048; 80053; 80061; 81001; 83735; 83880; 84443; 85025; 87086; 93005; 93306; 93970; 96374; G0378; J2003